=== PATIENT | female | born 1940 | race Hispanic/Latino ===

== ENCOUNTER → 2019-08-10 | Outpatient (CLI) | payer OTHER, MEDICARE | END | disposition home or self-care (01) | LOC: RAH 12:49 | PROVIDERS: ATTEND Family Medicine | DX: Z12.31 Encounter for screening mammogram for malignant neoplasm of breast (principal) | CPT/HCPCS: 77067 ==

== ENCOUNTER 2019-12-10 12:22 | Inpatient (IN) | payer OTHER, MEDICARE ==
[~2019-12-10] VITALS: Ht 157.5 cm; Wt 78.0 kg
[2019-12-10 13:37] LABS: BASOPHILS % (AUTO) 0.3 % (0.0-5.0); HEMATOCRIT 44.1 % (36-48); LYMPHOCYTES % (AUTO) 30.4 % (21.0-51.0); MEAN CORPUSCULAR HEMOGLOBIN 30.1 pg (27.0-33.0); MEAN CORPUSCULAR HGB CONC 33.6 g/dL (32.0-36.0); MEAN CORPUSCULAR VOLUME 89.8 fL (79-99); MONOCYTES % (AUTO) 11.2 % (3.0-13.0); NEUTROPHILS % (AUTO) 57.8 % (40.0-77.0); PLATELET COUNT (AUTO) 119 K/uL (130-400); RED BLOOD CELL COUNT(AUTO) 4.91 MIL/uL (4.00-5.50); RED CELL DISTRIBUTION WIDTH 12.6 % (11.0-15.5); WHITE BLOOD COUNT (AUTO) 3.3 K/uL (4.8-10.8)
[2019-12-10 13:53] LABS: CREATININE 0.8 mg/dL (0.5-1.5); POTASSIUM 3.9 mmol/L (3.5-5.1)
[2019-12-10 13:58] LABS: BILIRUBIN,TOTAL 0.6 mg/dL (0.2-1.0); TOTAL PROTEIN, SERUM 6.9 g/dL (6.0-8.3)
[2019-12-10 14:00] LABS: INR 0.95 (0.85-1.15); PROTHROMBIN TIME 10.3 SEC (9.6-11.6)
[2019-12-10] MEDS ORDERED: FUROSEMIDE 10 MG/ML 2ML VIAL ONE (16:09)
[2019-12-10] MEDS ORDERED: DEXAMETHASONE SOD PHOSPHATE 10MG/ML 1ML VIAL ONE (16:09)
[2019-12-10] MEDS ORDERED: ENOXAPARIN SODIUM 40 MG/0.4 ML SYRINGE SQ ONE (16:09)
[2019-12-10] MEDS ORDERED: ONDANSETRON HCL 4 MG/2 ML VIAL IVP PRN (19:00)
[2019-12-10] MEDS ORDERED: HYDRALAZINE HCL 20 MG/ML VIAL IV PRN (19:00)
[2019-12-10] MEDS ORDERED: DOCUSATE SODIUM 100 MG CAP PO PRN (19:00)
[2019-12-10] MEDS ORDERED: ACETAMINOPHEN 325 MG TAB PO PRN (19:00)
[2019-12-11] MEDS ORDERED: FUROSEMIDE 10 MG/ML 2ML VIAL IVP SCH (09:00)
[2019-12-11] MEDS: ENOXAPARIN SODIUM 40 MG/0.4 ML SYRINGE SQ SCH (09:00)
[2019-12-11] MEDS: DEXAMETHASONE SOD PHOSPHATE 10MG/ML 1ML VIAL IV SCH (09:00)
[2019-12-11] MEDS ORDERED: DEXAMETHASONE SOD PHOSPHATE 10MG/ML 1ML VIAL ONE (09:30)
[2019-12-11] MEDS ORDERED: FUROSEMIDE 10 MG/ML 2ML VIAL ONE (09:31)
[2019-12-11] MEDS ORDERED: ENOXAPARIN SODIUM 60 MG/0.6 ML SQ ONE (09:32)
[2019-12-11 09:53] LABS: CREATININE 0.7 mg/dL (0.5-1.5); POTASSIUM 4.1 mmol/L (3.5-5.1)
--- NOTE | 2019-12-11 14:42 | NUR ---
assume care of patient refer to er record for review of sx
--- NOTE | 2019-12-11 17:52 | NUR ---
INITIAL SW spoke to patient's daughter, Adry Jacob, [phone]. Another emergency contact is daughter, Lisa Horn, [phone]. Patient lives with daughter, Adry and grandson. No home health but does have PHC with [facility] X 17.75 hours a week. No DME. Patient was independent and drove up to two weeks ago as per daughter. PCP is Dr. Beth Santo. Pharmacy is [facility]. DCP is home. Addendum: 12/11/19 at 1755 by ADRY NOGUERA SS Amended: Links added.
[2019-12-12] MEDS: DEXAMETHASONE SOD PHOSPHATE 10MG/ML 1ML VIAL IV SCH (09:00)
[2019-12-12] MEDS: ENOXAPARIN SODIUM 40 MG/0.4 ML SYRINGE SQ SCH (09:00)
[2019-12-12] MEDS ORDERED: DEXAMETHASONE SOD PHOSPHATE 10MG/ML 1ML VIAL ONE (09:06)
[2019-12-12] MEDS ORDERED: FUROSEMIDE 10 MG/ML 2ML VIAL ONE (09:06)
[2019-12-12] MEDS ORDERED: ENOXAPARIN SODIUM 40 MG/0.4 ML SYRINGE SQ ONE (09:07)
[2019-12-12] MEDS ORDERED: GLUCAGON 1MG KIT 1 MG ML IM PRN (09:15)
[2019-12-12] MEDS ORDERED: DIPHENHYDRAMINE HCL 25 MG CAPSULE PO PRN (09:15)
[2019-12-12] MEDS ORDERED: ACETAMINOPHEN 325 MG TAB PO PRN ×2 (09:15)
[2019-12-12] MEDS ORDERED: DEXTROSE 50%-WATER 50 ML DISP.SYRIN IV PRN (09:15)
[2019-12-12] MEDS ORDERED: LACTULOSE 20 GM/30 ML UDCUP PO PRN (09:15)
[2019-12-12 09:21] LABS: CREATININE 0.8 mg/dL (0.5-1.5)
--- NOTE | 2019-12-12 10:26 | NUR ---
SPOKE TO JUAN BURT [facility] PLAN OF CARE- ADVISED HER THAT OBTAINING OXYGEN FOR HOME USE IS GOING TO BE VERY DIFFICULT AND WILL NOT BE TODAY SHORTAGES EXIST. IS POSSIBILITY OF WEANING O2? WILL FOLLOW UP Addendum: 12/12/19 at 1027 by PHOEBE MALIN RN CM Amended: Links added.
[2019-12-12] MEDS: INSULIN HUMULIN R 100 UNIT/ML 3ML SQ SCH ×3 (11:30→21:00)
[2019-12-12] MEDS: MULTIVITAMIN WITH MINERALS TABLET PO SCH (12:00)
[2019-12-12] MEDS: ASCORBIC ACID 500 MG TAB PO SCH (12:00)
[2019-12-12] MEDS ORDERED: MULTIVITAMIN WITH MINERALS TABLET PO SCH (14:30)
[2019-12-12] MEDS ORDERED: ASCORBIC ACID 500 MG TAB ONE (15:38)
[2019-12-12] MEDS: FAMOTIDINE 20MG TAB 20 MG TAB PO SCH (21:00)
[2019-12-12] MEDS ORDERED: FAMOTIDINE 20MG TAB 20 MG TAB ONE (21:01)
[2019-12-12 21:27] LABS: APPEARANCE,URINE Clear (CLEAR); BILIRUBIN,URINE Negative (NEGATIVE); COLOR,URINE Dark Yellow (YELLOW); GLUCOSE, URINE (UA) Negative (NEGATIVE); KETONES,URINE Negative (NEGATIVE); LEUKOCYTE ESTERASE ,URINE Negative (NEGATIVE); NITRATE,URINE Negative (NEGATIVE); OCCULT BLOOD,URINE Negative (NEGATIVE); PROTEIN,URINE Negative (NEGATIVE)
[2019-12-12] MEDS ORDERED: NOREPINEPHRINE 4MG/NS 250ML 250 ML IV SCH (22:00)
[2019-12-12] MEDS: AZITHROMYCIN 500MG+NS 250ML 250 ML IV SCH (22:00)
[2019-12-12 22:30] VITALS: BP 131/61
[2019-12-13 03:21] VITALS: BP 120/72
[2019-12-13 05:13] LABS: BASOPHILS % (AUTO) 0.1 % (0.0-5.0); HEMATOCRIT 42.6 % (36-48); LYMPHOCYTES % (AUTO) 6.2 % (21.0-51.0); MEAN CORPUSCULAR HEMOGLOBIN 29.7 pg (27.0-33.0); MEAN CORPUSCULAR HGB CONC 33.3 g/dL (32.0-36.0); MEAN CORPUSCULAR VOLUME 89.1 fL (79-99); MONOCYTES % (AUTO) 6.6 % (3.0-13.0); NEUTROPHILS % (AUTO) 86.7 % (40.0-77.0); PLATELET COUNT (AUTO) 154 K/uL (130-400); RED BLOOD CELL COUNT(AUTO) 4.78 MIL/uL (4.00-5.50); RED CELL DISTRIBUTION WIDTH 12.8 % (11.0-15.5); WHITE BLOOD COUNT (AUTO) 10.3 K/uL (4.8-10.8)
[2019-12-13 05:25] LABS: CREATININE 0.7 mg/dL (0.5-1.5); POTASSIUM 3.7 mmol/L (3.5-5.1)
[2019-12-13] MEDS: INSULIN HUMULIN R 100 UNIT/ML 3ML SQ SCH ×4 (06:41→21:00)
[2019-12-13 07:10] LABS: ABG BASE EXCESS 2.9 mmol/L (-2.0-3.0); ABG HCO3 26.5 mmol/L (21.0-28.0); ABG OXYGEN SATURATION 84.9 % (95.0-99.0); ABG PCO2 37 mmHg (32-45)
[2019-12-13 07:30] VITALS: BP 113/67
--- NOTE | 2019-12-13 08:00 | NUR ---
NOTE AAOX3. DNEIES PAIN OR DISCOMFORT. SOB WITH EXERTION AND SHE GETS TIRED QUICKLY. SHE IS HERE WITH SOB SUSPECTED COVID PNA. BBS CLEAR TO UPPER AND COARSE, SLIGHT CRACKLES TO LOWER. SHE HAD ABG'S DRAWN THIS AM AND WITH LOW PO2 LEVEL, LOWER THAN HAD BEEN AND SHE WAS INCREASED TO 3LNC. SHE IS PENDING CT CHEST WITHOUT CONTRAST ORDERED LAST NIGHT AND 2D ECHO. REMAINS ON ENHAMCED PRECAUTIONS FOR SUSPECTED COVID, POSSIBLE RESULTS TODAY.
[2019-12-13] MEDS ORDERED: DEXAMETHASONE SOD PHOSPHATE 4 MG/ML 1ML VIAL ONE (08:53)
[2019-12-13] MEDS: ENOXAPARIN SODIUM 40 MG/0.4 ML SYRINGE SQ SCH ×2 (09:00→09:36)
[2019-12-13] MEDS ORDERED: FUROSEMIDE 40 MG TABLET PO SCH (09:00)
[2019-12-13] MEDS: DEXAMETHASONE SOD PHOSPHATE 10MG/ML 1ML VIAL IV SCH (09:00)
[2019-12-13] MEDS: FAMOTIDINE 20MG TAB 20 MG TAB PO SCH ×2 (09:35→22:26)
[2019-12-13] MEDS: MULTIVITAMIN WITH MINERALS TABLET PO SCH (09:35)
[2019-12-13] MEDS: ASCORBIC ACID 500 MG TAB PO SCH (09:35)
[2019-12-13 11:00] VITALS: BP 115/75
--- NOTE | 2019-12-13 12:45 | NUR ---
NOTE SHE WENT AND CAME BACK FROM CT CHEST WITHOUT CONTRAST. ALSO HAD 2D ECHO DONE EARLIER THIS AM WELL.
[2019-12-13 16:00] VITALS: BP 141/66
--- NOTE | 2019-12-13 16:10 | NUR ---
note WAS REPORTED FROM TELEMETRY THAT PATIENT CONVERTED TO A-FIB IN THE 80'S EARLIER BUT HEART RATE HAS BEEN CREEPING UP TO 120'S. SHE DENIES ANY INCREASE IN SOB BUT O2 SATURATION HAS DROPPED TO 87% ON 3LNC, SAME AMOUNT O2 THAT HAD HER SATS 96%. INFORMED CHARGE NURSE STANFORD AND WILL GET AMIODARONE DRIP STARTED ONCE AVAILABLE.
[2019-12-13] MEDS ORDERED: AMIODARONE HCL 150 MG in DEXTROSE 5%-WATER 100 ML IV SCH (16:30)
[2019-12-13] MEDS ORDERED: AMIODARONE HCL 900 MG in DEXTROSE 5%-WATER 500 ML IV SCH (17:00)
--- NOTE | 2019-12-13 18:31 | NUR ---
NOTE PATIENT RECEIVED LOADING DOSE OF AMIODARONE IV AND STARTED DRIP AT 33ML/HR INDICATED FROM PHARMACY TO COMPLETE A DOSE OF 360 MG OVER 6 HR PERIOD. DRUG CONCENTRATION 900MG/500ML. NOTIFIED IDA AVALOS ARTS AND HUMANITIES COUNCIL DIRECTOR ABOUT IT AND SHE ALSO GAVE AN ORDER FOR CT CHEST WITH P.E. PROTOCOL. AFTER BOLUS HEART RATE DROPPED TO 100 BUT REMAINED ON A-FIB. AT THIS TIME HER HEART RATE IS 120 AND HER O2 SATURATION FLUCTUATES FROM 88%-92%. WILL ASK R.T. TO HELP TITRATE O2. PATIENT DOES NOT SEEM TO BE IN MUCH INCREASED DISTRESS. SHE WALKED TO BATHROOM EARLIER.
[2019-12-13] MEDS ORDERED: IOHEXOL-350 75 ML VIAL IV ONE (18:47)
[2019-12-13] MEDS ORDERED: DILTIAZEM HCL 125 MG/25 ML 125 MG in SODIUM CHLORIDE 0.9% 100 ML IV PRN (19:15)
[2019-12-13] MEDS ORDERED: DILTIAZEM HCL 5 MG/ML 5 ML VIAL IVP PRN (19:15)
--- NOTE | 2019-12-13 20:00 | NUR ---
1999.....pt received Amiodaron during day shift and converted from Afib to sinus rhythm with HR = 68 and BP = 136/86; Cardizem bolus and drip currently ordered on pt; will contact medical team for further guidance on administration; Dr. Ramos paged @[phone] and 2024; Dr Frye paged @[phone] and [phone]; answering service contacted @2051; Dr Frye returned page @[phone] and stated to discontinue/cancel current Cardizem order and prescribed Cardizem 30mg PO BID; order read back and verified. JULIO CESAR Fowler 2129.....Pt presented A&Ox4 and is cooperative; pts mood is appropriate; pt administered medications, no PRNs were requested and/or administered; pt educated on benefits, risk and side effects of meds and encouraged to utilize PRNs to relieve symptoms of disease process as well as use of medical equipment; pt verbalized understanding; pt denies any requests and/or complaints at this time; pts respirations are even and unlabored and she denies SOB however was observed to experience SOB with exertion; (pt on nasal canula at 4L which was increased to 5L O2 after ambulating from bathroom back to bed); no distress noted; will continue to monitor throughout remainder of shift. Korin Lance RN Addendum: 12/14/19 at 0308 by Connor Lance RN RN Amended: Links added.
[2019-12-13 20:11] VITALS: BP 136/86
[2019-12-13] MEDS: DILTIAZEM HCL 60 MG TABLET PO SCH (22:27)
[2019-12-13] MEDS: AZITHROMYCIN 500MG+NS 250ML 250 ML IV SCH (22:28)
[2019-12-13 23:32] VITALS: BP 123/54
[2019-12-14 03:35] VITALS: BP 120/71
[2019-12-14 04:28] LABS: ABG BASE EXCESS 0.3 mmol/L (-2.0-3.0); ABG HCO3 23.8 mmol/L (21.0-28.0); ABG OXYGEN SATURATION 91.6 % (95.0-99.0); ABG PCO2 35 mmHg (32-45)
[2019-12-14] MEDS: INSULIN HUMULIN R 100 UNIT/ML 3ML SQ SCH ×4 (06:59→21:00)
[2019-12-14 07:17] LABS: ALANINE AMINOTRANSFERASE 25 U/L (12-78); ALBUMIN 2.5 g/dL (3.5-5.0); ASPARTATE AMINOTRANSFERASE 33 U/L (10-37); BILIRUBIN,TOTAL 0.6 mg/dL (0.2-1.0); CARBON DIOXIDE 28 mmol/L (21-32); CHLORIDE 108 mmol/L (101-111); CREATININE 0.8 mg/dL (0.5-1.5); GLOMERULAR FILTR. RATE CALC 73 mL/min (>60); GLUCOSE,RANDOM 113 mg/dL (70-105); POTASSIUM 3.8 mmol/L (3.5-5.1); SODIUM SERUM 142 mmol/L (136-145); TOTAL PROTEIN, SERUM 6.2 g/dL (6.0-8.3); UREA NITROGEN, BLOOD 25 mg/dL (7-18)
[2019-12-14] MEDS: ENOXAPARIN SODIUM 40 MG/0.4 ML SYRINGE SQ SCH ×2 (07:40→08:31)
[2019-12-14 08:00] VITALS: BP 103/69
[2019-12-14] MEDS ORDERED: DEXAMETHASONE SOD PHOSPHATE 4 MG/ML 1ML VIAL ONE (08:26)
[2019-12-14] MEDS: ASCORBIC ACID 500 MG TAB PO SCH (08:29)
[2019-12-14] MEDS: MULTIVITAMIN WITH MINERALS TABLET PO SCH (08:29)
[2019-12-14] MEDS: FAMOTIDINE 20MG TAB 20 MG TAB PO SCH ×2 (08:30→22:04)
[2019-12-14] MEDS: DILTIAZEM HCL 60 MG TABLET PO SCH ×2 (08:30→22:06)
[2019-12-14] MEDS: DEXAMETHASONE SOD PHOSPHATE 10MG/ML 1ML VIAL IV SCH (08:32)
--- NOTE | 2019-12-14 08:45 | NUR ---
AM ASSESSMENT PT AWAKE, ALERT, AND ORIENTED. DENIES CHEST PAIN, DENIES SOB OR LABORED RESPIRATIONS AT THIS TIME. PT O2 SAT ON 6L PER NC 89-90%, PT ENCOURAGED TO PRONE POSITION AT THIS TIME. CALL PLACED TO RT TO MAKE AWARE OF O2 SAT FOR FURTHER RECOMMENDATIONS. PT IN NO DISTRESS AT THIS TIME, TELEMETRY MONITORING, CALL LIGHT WITHIN REACH. WILL CONTINUE TO MONITOR PT.
--- NOTE | 2019-12-14 10:45 | NUR ---
O2 SAT PT AWAKE AND ALERT, CONTINUES IN PRONE POSITION, DENIES SOB OR LABORED RESPIRATIONS. O2 SAT 89%-94%. CALL LIGHT WITHIN REACH, TELEMETRY MONITORING.
[2019-12-14 12:00] VITALS: BP 110/54
--- NOTE | 2019-12-14 14:00 | NUR ---
PM ASSESSMENT PT IN BED IN PRONE POSITION, DENIES SOB OR LABORED RESPIRATIONS. O2 PER NC, CALL LIGHT WITHIN REACH.
[2019-12-14 16:00] VITALS: BP 128/66
--- NOTE | 2019-12-14 16:10 | NUR ---
CARDIOLOGY CONSULT CONSULT CALLED IN TO [facility] FOR DIAGNOSIS OF NEW ONSET AFIB ; SPOKE TO BREANNE, INFORMATION GIVEN, DR KOCH INTERIOR DESIGN PRINCIPAL.
--- NOTE | 2019-12-14 18:00 | NUR ---
PRONE PATIENT AWAKE, ALERT, AND ORIENTED, DENIES SOB OR DISCOMFORT, NO CHEST PAIN. PT CONTINUES IN PRONE POSITION, O2 PER NC. TELEMETRY MONITORING, CALL LIGHT WITHIN REACH.
[2019-12-14 20:40] VITALS: BP 136/75
[2019-12-14] MEDS: AZITHROMYCIN 500MG+NS 250ML 250 ML IV SCH (22:13)
[2019-12-15] VITALS (7 sets, daily range): BP systolic 100–163; BP diastolic 60–87
--- NOTE | 2019-12-15 00:05 | NUR ---
PIV found infiltrated; IV abx stopped, PIV removed, ice packs applied and extremity elevated and pt received Tylenol for pain. Korin Lance RN Addendum: 12/15/19 at 0447 by Connor Lance RN RN Amended: Links added.
[2019-12-15 04:06] LABS: ABG BASE EXCESS -0.7 mmol/L (-2.0-3.0); ABG HCO3 22.1 mmol/L (21.0-28.0); ABG OXYGEN SATURATION 96.5 % (95.0-99.0); ABG PCO2 32 mmHg (32-45)
[2019-12-15 05:55] LABS: BASOPHILS % (AUTO) 0.1 % (0.0-5.0); HEMATOCRIT 45.2 % (36-48); LYMPHOCYTES % (AUTO) 8.1 % (21.0-51.0); MEAN CORPUSCULAR HEMOGLOBIN 28.9 pg (27.0-33.0); MEAN CORPUSCULAR HGB CONC 32.5 g/dL (32.0-36.0); MEAN CORPUSCULAR VOLUME 88.8 fL (79-99); MONOCYTES % (AUTO) 6.6 % (3.0-13.0); NEUTROPHILS % (AUTO) 84.3 % (40.0-77.0); PLATELET COUNT (AUTO) 180 K/uL (130-400); RED BLOOD CELL COUNT(AUTO) 5.09 MIL/uL (4.00-5.50); RED CELL DISTRIBUTION WIDTH 12.8 % (11.0-15.5)
[2019-12-15] MEDS: INSULIN HUMULIN R 100 UNIT/ML 3ML SQ SCH ×4 (06:23→20:01)
[2019-12-15 06:56] LABS: ALBUMIN 2.6 g/dL (3.5-5.0); BILIRUBIN,TOTAL 0.6 mg/dL (0.2-1.0); CREATININE 0.8 mg/dL (0.5-1.5); POTASSIUM 3.8 mmol/L (3.5-5.1); THYROID STIMULATING HORMONE 0.19 uIU/mL (0.36-3.74); TOTAL PROTEIN, SERUM 6.6 g/dL (6.0-8.3)
[2019-12-15] MEDS: ENOXAPARIN SODIUM 40 MG/0.4 ML SYRINGE SQ SCH ×2 (08:04→09:03)
--- NOTE | 2019-12-15 08:30 | NUR ---
AM ASSESSMENT PT AWAKE AND ALERT, DENIES SOB OR LABORED RESPIRATIONS, O2 PER NC. PT ENCOURAGED TO PRONE POSITION. O2 SAT 93-94%
[2019-12-15] MEDS ORDERED: DEXAMETHASONE SOD PHOSPHATE 4 MG/ML 1ML VIAL ONE (08:52)
[2019-12-15] MEDS: DEXAMETHASONE SOD PHOSPHATE 10MG/ML 1ML VIAL IV SCH (09:01)
[2019-12-15] MEDS: DILTIAZEM HCL 60 MG TABLET PO SCH ×2 (09:02→21:02)
[2019-12-15] MEDS: FAMOTIDINE 20MG TAB 20 MG TAB PO SCH ×2 (09:02→20:28)
[2019-12-15] MEDS: ASCORBIC ACID 500 MG TAB PO SCH (09:02)
[2019-12-15] MEDS: MULTIVITAMIN WITH MINERALS TABLET PO SCH (09:02)
--- NOTE | 2019-12-15 15:45 | NUR ---
O2 SAT PT UP TO BATHROOM PER SELF, REMINDED PT TO CALL FOR HELP BY USING CALL LIGHT. O2 SAT DROPPED TO 75% ON ROOM , O2 PER NC RE-APPLIED, O2 SAT UP TO 88%. PT DENIES SOB AT REST, O2 PER NON-REBREATHER APPLIED, O2 SAT 93%. PT REMINDED NOT TO REMOVE O2. IDA CONCRETE PLACEMENT EQUIPMENT OPERATOR FOR [employer] MADE AWARE; STATES TO ENCOURAGE PT TO USE BEDPAN OR BEDSIDE COMMODE AND CONTINUE TO MONITOR O2 SAT.
[2019-12-15] MEDS ORDERED: FAMOTIDINE/PF 20 MG/2 ML VIAL IV ONE (20:14)
[2019-12-15] MEDS: AZITHROMYCIN 500MG+NS 250ML 250 ML IV SCH (23:40)
[2019-12-16] VITALS: BP 128/72
[2019-12-16 04:00] VITALS: BP_SYST 135; BP_SYST 144; BP_DIAS 62; BP_DIAS 90
[2019-12-16] MEDS: INSULIN HUMULIN R 100 UNIT/ML 3ML SQ SCH ×4 (06:18→21:00)
[2019-12-16 08:53] VITALS: BP 145/75
[2019-12-16] MEDS: ENOXAPARIN SODIUM 40 MG/0.4 ML SYRINGE SQ SCH ×2 (09:00→09:33)
[2019-12-16] MEDS: FAMOTIDINE 20MG TAB 20 MG TAB PO SCH (09:00)
[2019-12-16] MEDS: DEXAMETHASONE SOD PHOSPHATE 10MG/ML 1ML VIAL IV SCH (09:30)
[2019-12-16] MEDS: ASCORBIC ACID 500 MG TAB PO SCH (09:32)
[2019-12-16] MEDS: DILTIAZEM HCL 60 MG TABLET PO SCH ×2 (09:32→22:50)
[2019-12-16] MEDS: MULTIVITAMIN WITH MINERALS TABLET PO SCH (09:32)
--- NOTE | 2019-12-16 10:00 | NUR ---
REOS ALVAREZ [facility] [place] ROUNDED ON PATIENT PATIENT SB 55 AND PER DARCIE SERVICE WILL SIGN OFF CASE FOR NOW. IF CONVERTS BACK A AFIB RECONSULT CARDIOLOGY
[2019-12-16 11:08] VITALS: BP 144/71
[2019-12-16 16:38] VITALS: BP 129/56
[2019-12-16 19:30] VITALS: BP 151/77
[2019-12-16] MEDS: AZITHROMYCIN 500MG+NS 250ML 250 ML IV SCH (22:50)
[2019-12-16] MEDS: FAMOTIDINE/PF 20 MG/2 ML VIAL IV SCH (22:50)
[2019-12-17 00:20] VITALS: BP 152/73
[2019-12-17 03:25] VITALS: BP 155/73
[2019-12-17] MEDS: INSULIN HUMULIN R 100 UNIT/ML 3ML SQ SCH ×4 (05:49→21:00)
[2019-12-17] MEDS: ENOXAPARIN SODIUM 40 MG/0.4 ML SYRINGE SQ SCH ×2 (07:32→08:37)
[2019-12-17] MEDS: MULTIVITAMIN WITH MINERALS TABLET PO SCH (08:37)
[2019-12-17] MEDS: FAMOTIDINE/PF 20 MG/2 ML VIAL IV SCH ×2 (08:37→22:51)
[2019-12-17] MEDS: DILTIAZEM HCL 60 MG TABLET PO SCH ×2 (08:38→22:51)
[2019-12-17] MEDS: ASCORBIC ACID 500 MG TAB PO SCH (08:38)
[2019-12-17 08:42] VITALS: BP 138/69
[2019-12-17] MEDS: DEXAMETHASONE SOD PHOSPHATE 10MG/ML 1ML VIAL IV SCH (08:44)
[2019-12-17 11:11] VITALS: BP 145/69
[2019-12-17 16:56] VITALS: BP 141/65
[2019-12-17 19:30] VITALS: BP 132/77
[2019-12-17] MEDS: AZITHROMYCIN 500MG+NS 250ML 250 ML IV SCH (22:51)
[2019-12-18] VITALS: BP 128/74
[2019-12-18 04:00] VITALS: BP 143/64
[2019-12-18] MEDS: INSULIN HUMULIN R 100 UNIT/ML 3ML SQ SCH ×4 (05:55→21:00)
[2019-12-18 08:00] VITALS: BP 130/78
[2019-12-18] MEDS: ASCORBIC ACID 500 MG TAB PO SCH (08:24)
[2019-12-18] MEDS: MULTIVITAMIN WITH MINERALS TABLET PO SCH (08:24)
[2019-12-18] MEDS: DILTIAZEM HCL 60 MG TABLET PO SCH ×2 (08:24→21:47)
[2019-12-18] MEDS: ENOXAPARIN SODIUM 40 MG/0.4 ML SYRINGE SQ SCH ×2 (08:25→12:06)
[2019-12-18] MEDS: FAMOTIDINE/PF 20 MG/2 ML VIAL IV SCH ×2 (08:26→21:47)
[2019-12-18] MEDS: DEXAMETHASONE SOD PHOSPHATE 10MG/ML 1ML VIAL IV SCH (08:30)
[2019-12-18 11:00] VITALS: BP 114/55
[2019-12-18 16:00] VITALS: BP 124/58
[2019-12-18] MEDS: AZITHROMYCIN 500MG+NS 250ML 250 ML IV SCH (21:47)
[2019-12-18 22:20] VITALS: BP 134/67
[2019-12-19 00:03] VITALS: BP 141/63
[2019-12-19] MEDS: INSULIN HUMULIN R 100 UNIT/ML 3ML SQ SCH ×4 (05:40→21:00)
[2019-12-19 05:47] VITALS: BP 139/71
[2019-12-19 08:00] VITALS: BP 98/58
[2019-12-19] MEDS: ENOXAPARIN SODIUM 40 MG/0.4 ML SYRINGE SQ SCH ×2 (09:00→09:24)
[2019-12-19] MEDS: DEXAMETHASONE SOD PHOSPHATE 10MG/ML 1ML VIAL IV SCH (09:22)
[2019-12-19] MEDS: ASCORBIC ACID 500 MG TAB PO SCH (09:23)
[2019-12-19] MEDS: MULTIVITAMIN WITH MINERALS TABLET PO SCH (09:23)
[2019-12-19] MEDS: FAMOTIDINE/PF 20 MG/2 ML VIAL IV SCH ×2 (09:23→21:00)
[2019-12-19] MEDS: DILTIAZEM HCL 60 MG TABLET PO SCH ×2 (09:23→21:00)
--- NOTE | 2019-12-19 11:48 | NUR ---
RDSCREEN - LOS X 9 Pt positive for COVID infection. Pt is tolerating 75gm CCD with no report of GI distress. PO intake at 75%. Vitamin C, MVI in place. S/p Plasma Tx. New onset AFib as per EMR. Dyspnea. Recommend continue 75gm CCD Recommend 60mL ProMod BID RD to continue to monitor. Please notify RD as additional nutrition concerns arise. Thank you.
[2019-12-19 12:00] VITALS: BP 133/67
[2019-12-19 17:16] VITALS: BP 128/72
[2019-12-19 20:36] VITALS: BP 144/72
[2019-12-19] MEDS: AZITHROMYCIN 500MG+NS 250ML 250 ML IV SCH (21:10)
[2019-12-20 00:36] VITALS: BP 127/65
[2019-12-20 04:36] VITALS: BP 131/67
[2019-12-20] MEDS: INSULIN HUMULIN R 100 UNIT/ML 3ML SQ SCH ×4 (05:51→21:00)
--- NOTE | 2019-12-20 08:00 | NUR ---
PT AAO X 3 REVIEW PLAN OF CARE. PT POSITION HERSELF ON PRONE POSITIONS FOR RESP CARE. STATES THAT SHE TRY VERY HARD TO GET DOWN ON HER OXGEN VIA 100 % NRB. REVIEW FALL RISK ANDCALL LIGHT IN REACH.
[2019-12-20] MEDS: ENOXAPARIN SODIUM 40 MG/0.4 ML SYRINGE SQ SCH ×3 (09:00→21:00)
[2019-12-20] MEDS: DILTIAZEM HCL 60 MG TABLET PO SCH (09:00)
[2019-12-20] MEDS: MULTIVITAMIN WITH MINERALS TABLET PO SCH (09:09)
[2019-12-20] MEDS: ASCORBIC ACID 500 MG TAB PO SCH (09:09)
[2019-12-20] MEDS: FAMOTIDINE/PF 20 MG/2 ML VIAL IV SCH ×2 (09:10→21:00)
[2019-12-20] MEDS: DEXAMETHASONE SOD PHOSPHATE 10MG/ML 1ML VIAL IV SCH (09:10)
[2019-12-20 09:39] VITALS: BP 114/63
[2019-12-20 12:21] VITALS: BP 160/73
--- NOTE | 2019-12-20 14:58 | NUR ---
Family notification Spoke to Lisa Jacob and gave her an update regarding pt's condition. All questions were answered and concerns addressed. Mrs. Jacob was very appreciative of call.
--- NOTE | 2019-12-20 16:11 | NUR ---
Family notification Addendum for 12/19/2019; Spoke to Lisa Jacob and gave her an update regarding pt's condition. All questions were answered and concerns addressed. Mrs. Jacob was very appreciative of call.
[2019-12-20 17:37] VITALS: BP 134/74
[2019-12-20 22:59] VITALS: BP 146/85
[2019-12-20] MEDS: AZITHROMYCIN 500MG+NS 250ML 250 ML IV SCH (23:39)
[2019-12-21 01:02] VITALS: BP 126/69
[2019-12-21] MEDS: INSULIN HUMULIN R 100 UNIT/ML 3ML SQ SCH ×4 (05:06→21:00)
[2019-12-21 05:48] VITALS: BP 132/74
[2019-12-21 07:18] LABS: BASOPHILS % (AUTO) 0.1 % (0.0-5.0); HEMATOCRIT 42.9 % (36-48); LYMPHOCYTES % (AUTO) 1.8 % (21.0-51.0); MEAN CORPUSCULAR HEMOGLOBIN 30.1 pg (27.0-33.0); MEAN CORPUSCULAR HGB CONC 33.8 g/dL (32.0-36.0); MONOCYTES % (AUTO) 1.9 % (3.0-13.0); NEUTROPHILS % (AUTO) 95.4 % (40.0-77.0); PLATELET COUNT (AUTO) 200 K/uL (130-400); RED BLOOD CELL COUNT(AUTO) 4.82 MIL/uL (4.00-5.50); RED CELL DISTRIBUTION WIDTH 13.1 % (11.0-15.5); WHITE BLOOD COUNT (AUTO) 18.2 K/uL (4.8-10.8)
[2019-12-21 07:56] LABS: CARBON DIOXIDE 29 mmol/L (21-32); CHLORIDE 105 mmol/L (101-111); CREATININE 0.8 mg/dL (0.5-1.5); GLOMERULAR FILTR. RATE CALC 73 mL/min (>60); GLUCOSE,RANDOM 89 mg/dL (70-105); POTASSIUM 4.3 mmol/L (3.5-5.1); SODIUM SERUM 141 mmol/L (136-145); UREA NITROGEN, BLOOD 25 mg/dL (7-18)
[2019-12-21 08:00] VITALS: BP 116/48
[2019-12-21 08:12] LABS: ABG BASE EXCESS 0.9 mmol/L (-2.0-3.0); ABG HCO3 23.3 mmol/L (21.0-28.0); ABG OXYGEN SATURATION 93.7 % (95.0-99.0); ABG PCO2 31 mmHg (32-45)
[2019-12-21] MEDS: MULTIVITAMIN WITH MINERALS TABLET PO SCH (09:00)
[2019-12-21] MEDS: ASCORBIC ACID 500 MG TAB PO SCH (09:00)
[2019-12-21] MEDS: DEXAMETHASONE SOD PHOSPHATE 10MG/ML 1ML VIAL IV SCH (09:00)
[2019-12-21] MEDS: ENOXAPARIN SODIUM 40 MG/0.4 ML SYRINGE SQ SCH (09:00)
[2019-12-21] MEDS: FAMOTIDINE/PF 20 MG/2 ML VIAL IV SCH ×2 (09:00→21:45)
[2019-12-21 12:00] VITALS: BP 130/75
[2019-12-21 16:00] VITALS: BP 122/65
[2019-12-21] MEDS: FUROSEMIDE 10 MG/ML 2ML VIAL IV SCH (18:20)
[2019-12-21] MEDS ORDERED: ENOXAPARIN SODIUM 80 MG/0.8 ML SQ SCH (21:00)
[2019-12-21] MEDS: AZITHROMYCIN 500MG+NS 250ML 250 ML IV SCH (21:45)
[2019-12-21 21:52] VITALS: BP 114/70
--- NOTE | 2019-12-22 | NUR ---
pts PIV infiltrated and IV antibiotics stopped; ice pack applied at site to RFA; pt refuses to have another PIV placed at this time but states she will allow a new IV to be placed in the morning; refusal for treatment formed signed and on-call physician paged through answering service; pending response; no new orders at this time. JULIO CESAR Fowler
[2019-12-22 01:59] VITALS: BP 151/60
[2019-12-22 04:39] LABS: BASOPHILS % (AUTO) 0.1 % (0.0-5.0); HEMATOCRIT 45.7 % (36-48); MEAN CORPUSCULAR HEMOGLOBIN 29.9 pg (27.0-33.0); MEAN CORPUSCULAR HGB CONC 33.5 g/dL (32.0-36.0); MEAN CORPUSCULAR VOLUME 89.4 fL (79-99); MONOCYTES % (AUTO) 1.6 % (3.0-13.0); NEUTROPHILS % (AUTO) 95.7 % (40.0-77.0); PLATELET COUNT (AUTO) 202 K/uL (130-400); RED BLOOD CELL COUNT(AUTO) 5.11 MIL/uL (4.00-5.50); WHITE BLOOD COUNT (AUTO) 17.6 K/uL (4.8-10.8)
[2019-12-22 05:09] LABS: CREATININE 0.9 mg/dL (0.5-1.5); MAGNESIUM 2.3 mg/dL (1.80-2.40); POTASSIUM 4.4 mmol/L (3.5-5.1)
[2019-12-22] MEDS: INSULIN HUMULIN R 100 UNIT/ML 3ML SQ SCH ×4 (06:10→21:00)
[2019-12-22 06:30] VITALS: BP 118/50
[2019-12-22] MEDS: FUROSEMIDE 10 MG/ML 2ML VIAL IV SCH ×2 (06:40→16:04)
[2019-12-22] MEDS: FAMOTIDINE/PF 20 MG/2 ML VIAL IV SCH ×2 (08:14→21:29)
[2019-12-22] MEDS: ASCORBIC ACID 500 MG TAB PO SCH (08:14)
[2019-12-22] MEDS: MULTIVITAMIN WITH MINERALS TABLET PO SCH (08:15)
[2019-12-22] MEDS: APIXABAN 5 MG TABLET PO SCH ×2 (08:15→21:29)
[2019-12-22 08:30] VITALS: BP 119/68
[2019-12-22 11:00] VITALS: BP 113/77
[2019-12-22 15:30] VITALS: BP 96/50
[2019-12-22 21:13] VITALS: BP 106/65
[2019-12-23] VITALS (16 sets, daily range): BP systolic 60–128; BP diastolic 20–89
[2019-12-23] MEDS: FUROSEMIDE 10 MG/ML 2ML VIAL IV SCH ×2 (05:42→17:00)
[2019-12-23] MEDS: INSULIN HUMULIN R 100 UNIT/ML 3ML SQ SCH ×4 (05:43→21:00)
--- NOTE | 2019-12-23 08:00 | NUR ---
AM SHIFT ASSESSMENT.
[2019-12-23] MEDS: MULTIVITAMIN WITH MINERALS TABLET PO SCH (09:15)
[2019-12-23] MEDS: ASCORBIC ACID 500 MG TAB PO SCH (09:15)
[2019-12-23] MEDS: APIXABAN 5 MG TABLET PO SCH ×2 (09:15→21:00)
[2019-12-23] MEDS: FAMOTIDINE/PF 20 MG/2 ML VIAL IV SCH ×2 (09:15→21:00)
--- NOTE | 2019-12-23 16:00 | NUR ---
BREATHING VERY SHALLOW, SATS UP AND DOWN, GOES DOWN TO 70S AND RESP IN THE 40S, LABORED. CHARGE NURSE AWARE.
[2019-12-23 17:03] LABS: ABG BASE EXCESS 3.8 mmol/L (-2.0-3.0); ABG HCO3 27.3 mmol/L (21.0-28.0); ABG PCO2 38 mmHg (32-45)
--- NOTE | 2019-12-23 17:46 | NUR ---
PAGED FAISAL AVALOS OUTDOOR RECREATION SPECIALIST WITH BENCHMARK RE PT. COND. LEFT VOICE MAIL THERE WAS NO ANSWER. 02 SATS AT 90%ON BI-PAP BUT BREATHING IS VERY SHALLOW, HAND ARE BLUISH AND COLD AND RESP. DISCUSSED WITH CHARGE AND OUTDOOR RECREATION SPECIALIST CALLED BACK AND ASKED THAT W E TALK TO FAMILY RE:CODE STATUS. TALKED TO DAUGHTER BRITTANY AND SHE WILL TALK TO OTHER FAMILY MEMBERS AND WILL CALL BACK
--- NOTE | 2019-12-23 18:00 | NUR ---
PLACED ON PRONE POSITION, SATS DROPPED INTO 70S, RETURNED TO SUPINE POSITION. RESPIRATORY THERAPY WORKING WITH SETTINGS ON CPAP. .
--- NOTE | 2019-12-23 18:16 | NUR ---
DAUGHTER CALLED BACK AND WANTS EVERY THING WE CAN DO TO KEEP HER ALIVE , WANT INTUBATION AND ASKING IF SHE WOULD STAY ON THIS FLOOR.
[2019-12-23 19:15] LABS: ABG BASE EXCESS 2.7 mmol/L (-2.0-3.0); ABG HCO3 27.2 mmol/L (21.0-28.0); ABG OXYGEN SATURATION 82.8 % (95.0-99.0); ABG PCO2 41 mmHg (32-45)
--- NOTE | 2019-12-23 21:00 | NUR ---
BEDSIDE REPORT BEDSIDE REPORT RECEIVED FROM JOLIE HARRELL. ABG'S REVIEWED AND PENDING INTUBATION BY MESERET PATEL. ASSESSMENT COMPLETED AND IV'S STARTED, SEE ASSESSMENT.
[2019-12-23] MEDS ORDERED: FENTANYL CITRATE PF 0.05 MG/ML 1,000 MCG in SODIUM CHLORIDE 0.9% 100 ML IVPB SCH (21:15)
[2019-12-23] MEDS ORDERED: FENTANYL 2500MCG+NS 250ML 250 ML IV ONE (21:17)
[2019-12-23] MEDS ORDERED: PROPOFOL 1000 MG/100 ML 100 ML IV ONE (21:17)
[2019-12-23] MEDS ORDERED: SODIUM CHLORIDE 0.9% 1000ML 1,000 ML IV ONE (21:19)
--- NOTE | 2019-12-23 21:21 | NUR ---
Upon receiving report at the start of shiftman, this nurse was informed that pts condition had deteriorated and pt was now on BIPAP (16 over 6 settings, FIO2 at 100%, pt satting 85-89% with agonal breathing); pt continued to be monitored with vitals RR=38, PY=302/76, HR = 71 and temp 97.7; pt is lying supine in bed; pt transferred to 2nd floor ICU at 2100; pt was transferred on BIPAP with primary nurse, RT and 4th floor CN; report given to ICU nurse and pts daughter notified of pts transfer and provided with phone number to contact pts nurse for updates; Janeth RN
--- NOTE | 2019-12-23 21:35 | NUR ---
PT INTUBATED PT INTUBATED, PCXR PENDING YO VERIFY PLACEMENT.
[2019-12-23] MEDS: NOREPINEPHRINE 4MG/NS 250ML 250 ML IV SCH (21:56)
--- NOTE | 2019-12-23 22:00 | NUR ---
ETT placement is 23 at the lip and placement verified by Joaquín Vasquez.
[2019-12-23 22:16] LABS: ABG BASE EXCESS 2.1 mmol/L (-2.0-3.0); ABG HCO3 26.4 mmol/L (21.0-28.0); ABG OXYGEN SATURATION 91.1 % (95.0-99.0); ABG PCO2 40 mmHg (32-45)
--- NOTE | 2019-12-23 22:25 | NUR ---
JUAN MARTINEZ NP MADE AWARE OF ABG'S, CURRENT VITAL SIGNS, MEDS, ABD LABS, SEE ORDERS
[2019-12-23] MEDS ORDERED: DOXYCYCLINE 100MG+NS 250ML 250 ML IV SCH (22:30)
[2019-12-23] MEDS ORDERED: MIDAZOLAM 50MG-0.9% NS 50ML 50 ML BAG IV SCH (22:30)
--- NOTE | 2019-12-23 22:40 | NUR ---
JUAN LOUISE OFFICE SUPPORT CLERK ORDERS RECEIVED FOR ZOSYN, SEE PT ALLERGIES, ABX CHANGED TO DOXYCYCLINE
[2019-12-23] MEDS ORDERED: METHYLPREDNISOLONE SOD SUCC 40MG/ML 1ML ONE (22:43)
[2019-12-23] MEDS: METHYLPREDNISOLONE SOD SUCC 40MG/ML 1ML IVP SCH (23:00)
[2019-12-24] VITALS (25 sets, daily range): BP systolic 91–143; BP diastolic 50–87
[2019-12-24] MEDS ORDERED: SUCCINYLCHOLINE 200MG/10ML SYR IM ONE
--- NOTE | 2019-12-24 | NUR ---
ASSESSMENT VENT ALARMING WITH HIGH PEEP, PT ASYNCHRONOUS WITH VENT. FENTANYL, VERSED, PROPOFOL AND LEVOPHED INFUSING WITHOUT DIFFICULTY. OGT TO Viola.I.W.Felipe., SCD IN PLACE. PRESTON CATH TO BSD. ASSESSMENT COMPLETE, SEE FLOW SHEET.
[2019-12-24 01:04] LABS: ABG BASE EXCESS 2.7 mmol/L (-2.0-3.0); ABG OXYGEN SATURATION 93.6 % (95.0-99.0); ABG PCO2 32 mmHg (32-45)
[2019-12-24] MEDS: PROPOFOL 1000 MG/100 ML IV PRN ×3 (01:37→09:42)
--- NOTE | 2019-12-24 03:20 | NUR ---
ASSESSMENT PT SYNCHRONOUS WITH VENT. FENTANYL, VERSED, PROPOFOL AND LEVOPHED INFUSING WITHOUT DIFFICULTY. OGT TO L.I.WGregorio., SCD IN PLACE. PRESTON CATH TO BSD. ASSESSMENT COMPLETED, SEE FLOW SHEET. VSS, SEE ABG.
[2019-12-24 04:13] LABS: ABG BASE EXCESS 1.6 mmol/L (-2.0-3.0); ABG HCO3 24.6 mmol/L (21.0-28.0); ABG OXYGEN SATURATION 96.8 % (95.0-99.0); ABG PCO2 34 mmHg (32-45)
[2019-12-24] MEDS: FUROSEMIDE 10 MG/ML 2ML VIAL IV SCH ×2 (04:21→18:13)
[2019-12-24] MEDS: INSULIN HUMULIN R 100 UNIT/ML 3ML SQ SCH ×3 (05:24→18:00)
[2019-12-24 06:23] LABS: MEAN CORPUSCULAR HEMOGLOBIN 29.8 pg (27.0-33.0); MEAN CORPUSCULAR HGB CONC 34.4 g/dL (32.0-36.0); MEAN CORPUSCULAR VOLUME 86.5 fL (79-99); RED BLOOD CELL COUNT(AUTO) 5.2 MIL/uL (4.00-5.50); RED CELL DISTRIBUTION WIDTH 13.1 % (11.0-15.5); WHITE BLOOD COUNT (AUTO) 21.1 K/uL (4.8-10.8)
[2019-12-24 06:44] LABS: CREATININE 1.1 mg/dL (0.5-1.5); POTASSIUM 3.5 mmol/L (3.5-5.1)
[2019-12-24] MEDS ORDERED: LIDOCAINE HCL-MPF 1% 2ML VIAL IV PRN (08:00)
[2019-12-24] MEDS ORDERED: DOXYCYCLINE HYCLATE 100 MG TABLET PO ONE (08:44)
[2019-12-24] MEDS: APIXABAN 5 MG TABLET PO SCH ×2 (09:04→22:00)
[2019-12-24] MEDS: POTASSIUM CHLORIDE 20MEQ/100ML 100 ML IV PRN ×2 (09:04→18:14)
[2019-12-24] MEDS: ASCORBIC ACID 500 MG TAB PO SCH (09:04)
[2019-12-24] MEDS: METHYLPREDNISOLONE SOD SUCC 40MG/ML 1ML IVP SCH ×3 (09:04→22:07)
[2019-12-24] MEDS: MULTIVITAMIN WITH MINERALS TABLET PO SCH (09:05)
[2019-12-24] MEDS: FAMOTIDINE/PF 20 MG/2 ML VIAL IV SCH ×2 (09:05→22:00)
[2019-12-24] MEDS: DOXYCYCLINE HYCLATE 100 MG TABLET PO SCH ×2 (10:07→22:01)
[2019-12-24] MEDS: MIDAZOLAM HCL 50 MG in SODIUM CHLORIDE 0.9% 50 ML IV SCH (22:39)
[2019-12-25] VITALS (35 sets, daily range): BP systolic 95–166; BP diastolic 58–87
[2019-12-25] MEDS: FUROSEMIDE 10 MG/ML 2ML VIAL IV SCH ×2 (04:38→16:21)
[2019-12-25 04:42] LABS: BASOPHILS % (AUTO) 0.1 % (0.0-5.0); HEMATOCRIT 42.9 % (36-48); LYMPHOCYTES % (AUTO) 2.2 % (21.0-51.0); MEAN CORPUSCULAR HEMOGLOBIN 29.6 pg (27.0-33.0); MEAN CORPUSCULAR HGB CONC 34.3 g/dL (32.0-36.0); MEAN CORPUSCULAR VOLUME 86.5 fL (79-99); MONOCYTES % (AUTO) 1.8 % (3.0-13.0); NEUTROPHILS % (AUTO) 95.3 % (40.0-77.0); PLATELET COUNT (AUTO) 185 K/uL (130-400); RED BLOOD CELL COUNT(AUTO) 4.96 MIL/uL (4.00-5.50); RED CELL DISTRIBUTION WIDTH 13.3 % (11.0-15.5); WHITE BLOOD COUNT (AUTO) 17.3 K/uL (4.8-10.8)
[2019-12-25 05:08] LABS: ALBUMIN 1.8 g/dL (3.5-5.0); BILIRUBIN,TOTAL 1.3 mg/dL (0.2-1.0); TOTAL PROTEIN, SERUM 6.1 g/dL (6.0-8.3)
[2019-12-25] MEDS: INSULIN HUMULIN R 100 UNIT/ML 3ML SQ SCH ×5 (05:19→23:20)
[2019-12-25] MEDS: APIXABAN 5 MG TABLET PO SCH ×2 (09:27→19:44)
[2019-12-25] MEDS: MULTIVITAMIN WITH MINERALS TABLET PO SCH (09:27)
[2019-12-25] MEDS: FAMOTIDINE/PF 20 MG/2 ML VIAL IV SCH ×2 (09:27→19:44)
[2019-12-25] MEDS: ASCORBIC ACID 500 MG TAB PO SCH (09:27)
[2019-12-25] MEDS: DOXYCYCLINE HYCLATE 100 MG TABLET PO SCH ×2 (09:27→19:44)
[2019-12-25] MEDS: METHYLPREDNISOLONE SOD SUCC 40MG/ML 1ML IVP SCH ×3 (09:27→21:47)
[2019-12-25] MEDS: NOREPINEPHRINE 4MG/NS 250ML 250 ML IV SCH (14:07)
[2019-12-25] MEDS: MIDAZOLAM HCL 50 MG in SODIUM CHLORIDE 0.9% 50 ML IV SCH (19:44)
[2019-12-25] MEDS: FENTANYL 2500MCG+NS 250ML 250 ML IV SCH (19:45)
[2019-12-26] VITALS (24 sets, daily range): BP systolic 88–119; BP diastolic 53–81
[2019-12-26 04:04] LABS: BASOPHILS % (AUTO) 0.1 % (0.0-5.0); LYMPHOCYTES % (AUTO) 1.8 % (21.0-51.0); MEAN CORPUSCULAR HEMOGLOBIN 29.8 pg (27.0-33.0); MEAN CORPUSCULAR VOLUME 87.5 fL (79-99); MONOCYTES % (AUTO) 1.3 % (3.0-13.0); NEUTROPHILS % (AUTO) 96.3 % (40.0-77.0); PLATELET COUNT (AUTO) 172 K/uL (130-400); RED CELL DISTRIBUTION WIDTH 13.3 % (11.0-15.5)
[2019-12-26] MEDS: FUROSEMIDE 10 MG/ML 2ML VIAL IV SCH (04:07)
[2019-12-26 04:21] LABS: MAGNESIUM 2.5 mg/dL (1.80-2.40); POTASSIUM 3.6 mmol/L (3.5-5.1)
[2019-12-26] MEDS: INSULIN HUMULIN R 100 UNIT/ML 3ML SQ SCH ×3 (05:06→17:17)
[2019-12-26 08:04] LABS: INR 1.12 (0.85-1.15); PARTIAL THROMBOPLASTIN TIME 29.6 SEC (26.3-35.5)
[2019-12-26 08:05] LABS: ABG BASE EXCESS -0.2 mmol/L (-2.0-3.0); ABG HCO3 22.6 mmol/L (21.0-28.0); ABG OXYGEN SATURATION 90.2 % (95.0-99.0); ABG PCO2 32 mmHg (32-45)
[2019-12-26] MEDS: POTASSIUM CHLORIDE 20MEQ/100ML 100 ML IV PRN (08:59)
[2019-12-26] MEDS: METHYLPREDNISOLONE SOD SUCC 40MG/ML 1ML IVP SCH ×3 (09:00→21:02)
[2019-12-26] MEDS: FAMOTIDINE/PF 20 MG/2 ML VIAL IV SCH ×2 (09:00→21:01)
[2019-12-26] MEDS: ASCORBIC ACID 500 MG TAB PO SCH (09:00)
[2019-12-26] MEDS: DOXYCYCLINE HYCLATE 100 MG TABLET PO SCH ×2 (09:00→21:01)
[2019-12-26] MEDS: MULTIVITAMIN WITH MINERALS TABLET PO SCH (09:00)
[2019-12-26] MEDS: APIXABAN 5 MG TABLET PO SCH ×2 (09:00→21:02)
[2019-12-26 09:25] LABS: ALBUMIN 1.8 g/dL (3.5-5.0); BILIRUBIN,DIRECT 0.3 mg/dL (0.0-0.3); CRP QUANTITATIVE 150.3 mg/L (0.00-9.0)
[2019-12-26] MEDS ORDERED: PHARMACY COMMUNICATION MISC SCH (11:15)
--- NOTE | 2019-12-26 14:34 | NUR ---
RD FOLLOW UP NOTIFICATION FOR TUBE FEEDING RECEIVED. RECOMMEND CONTINUOUS VITAL AF 1.2 INITIATED AT 15MLS FIRST 5 HRS. GOAL RATE:45MLS RECOMMEND FLUSH 200ML Q6 HRS. RECOMMENDATIONS FAXED TO 2C, COVERING RN NOTIFIED. RD TO CONTINUE TO MONITOR. PLEASE NOTIFY ADDITIONAL NUTRITION CONCERNS ARISE. THANK YOU.
[2019-12-26] MEDS ORDERED: MIDAZOLAM 50MG-0.9% NS 50ML 50 ML BAG IV SCH (19:00)
[2019-12-26] MEDS: MIDAZOLAM HCL 50 MG in SODIUM CHLORIDE 0.9% 50 ML IV SCH (21:27)
[2019-12-27] VITALS (25 sets, daily range): BP systolic 86–138; BP diastolic 50–81
[2019-12-27 05:05] LABS: MEAN CORPUSCULAR HEMOGLOBIN 29.8 pg (27.0-33.0); MEAN CORPUSCULAR HGB CONC 33.6 g/dL (32.0-36.0); MEAN CORPUSCULAR VOLUME 88.8 fL (79-99); RED BLOOD CELL COUNT(AUTO) 4.39 MIL/uL (4.00-5.50); RED CELL DISTRIBUTION WIDTH 13.6 % (11.0-15.5); WHITE BLOOD COUNT (AUTO) 11.4 K/uL (4.8-10.8)
[2019-12-27 05:18] LABS: ABG BASE EXCESS 0.7 mmol/L (-2.0-3.0); ABG HCO3 23.9 mmol/L (21.0-28.0); ABG OXYGEN SATURATION 97.4 % (95.0-99.0); ABG PCO2 34 mmHg (32-45)
[2019-12-27 05:27] LABS: ALBUMIN 1.7 g/dL (3.5-5.0); POTASSIUM 3.8 mmol/L (3.5-5.1); TOTAL PROTEIN, SERUM 5.7 g/dL (6.0-8.3)
[2019-12-27] MEDS: INSULIN HUMULIN R 100 UNIT/ML 3ML SQ SCH ×5 (06:00→23:45)
[2019-12-27] MEDS: ASCORBIC ACID 500 MG TAB PO SCH (08:42)
[2019-12-27] MEDS: METHYLPREDNISOLONE SOD SUCC 40MG/ML 1ML IVP SCH ×3 (08:42→21:50)
[2019-12-27] MEDS: FAMOTIDINE/PF 20 MG/2 ML VIAL IV SCH ×2 (08:42→21:50)
[2019-12-27] MEDS: DOXYCYCLINE HYCLATE 100 MG TABLET PO SCH ×2 (08:43→21:50)
[2019-12-27] MEDS: MULTIVITAMIN WITH MINERALS TABLET PO SCH (08:43)
[2019-12-27] MEDS: APIXABAN 5 MG TABLET PO SCH ×2 (08:43→21:50)
[2019-12-27] MEDS: FENTANYL 2500MCG+NS 250ML 250 ML IV SCH (13:32)
[2019-12-28] VITALS (21 sets, daily range): BP systolic 90–131; BP diastolic 45–79
[2019-12-28 03:16] LABS: ABG BASE EXCESS 1.7 mmol/L (-2.0-3.0); ABG HCO3 26.1 mmol/L (21.0-28.0); ABG OXYGEN SATURATION 92.8 % (95.0-99.0); ABG PCO2 40 mmHg (32-45)
[2019-12-28] MEDS: INSULIN HUMULIN R 100 UNIT/ML 3ML SQ SCH ×4 (06:00→23:48)
[2019-12-28 06:37] LABS: HEMATOCRIT 38.9 % (36-48); MEAN CORPUSCULAR HEMOGLOBIN 29.9 pg (27.0-33.0); MEAN CORPUSCULAR HGB CONC 33.2 g/dL (32.0-36.0); RED BLOOD CELL COUNT(AUTO) 4.32 MIL/uL (4.00-5.50); WHITE BLOOD COUNT (AUTO) 10.9 K/uL (4.8-10.8)
[2019-12-28 06:57] LABS: ALBUMIN 1.6 g/dL (3.5-5.0); BILIRUBIN,TOTAL 0.8 mg/dL (0.2-1.0); CREATININE 0.7 mg/dL (0.5-1.5); POTASSIUM 4.2 mmol/L (3.5-5.1); TOTAL PROTEIN, SERUM 5.5 g/dL (6.0-8.3)
[2019-12-28] MEDS: DOXYCYCLINE HYCLATE 100 MG TABLET PO SCH ×2 (08:38→20:19)
[2019-12-28] MEDS: METHYLPREDNISOLONE SOD SUCC 40MG/ML 1ML IVP SCH ×3 (08:38→20:19)
[2019-12-28] MEDS: MULTIVITAMIN WITH MINERALS TABLET PO SCH (08:38)
[2019-12-28] MEDS: ASCORBIC ACID 500 MG TAB PO SCH (08:38)
[2019-12-28] MEDS: FAMOTIDINE/PF 20 MG/2 ML VIAL IV SCH ×2 (08:38→20:18)
[2019-12-28] MEDS: APIXABAN 5 MG TABLET PO SCH ×2 (08:38→20:19)
[2019-12-28] MEDS: MIDAZOLAM HCL 50 MG in SODIUM CHLORIDE 0.9% 50 ML IV SCH (08:39)
[2019-12-28] MEDS: FENTANYL 2500MCG+NS 250ML 250 ML IV SCH (15:54)
[2019-12-28] MEDS: LACTULOSE 20 GM/30 ML UDCUP PO SCH (20:19)
[2019-12-29] VITALS (10 sets, daily range): BP systolic 94–143; BP diastolic 54–73
[2019-12-29] MEDS: MIDAZOLAM HCL 50 MG in SODIUM CHLORIDE 0.9% 50 ML IV SCH (01:54)
[2019-12-29 03:31] LABS: ABG BASE EXCESS 1.5 mmol/L (-2.0-3.0); ABG HCO3 26.6 mmol/L (21.0-28.0); ABG OXYGEN SATURATION 79.1 % (95.0-99.0); ABG PCO2 44 mmHg (32-45)
[2019-12-29 03:54] LABS: HEMATOCRIT 37.9 % (36-48); MEAN CORPUSCULAR HEMOGLOBIN 29.6 pg (27.0-33.0); MEAN CORPUSCULAR HGB CONC 32.2 g/dL (32.0-36.0); RED BLOOD CELL COUNT(AUTO) 4.12 MIL/uL (4.00-5.50); RED CELL DISTRIBUTION WIDTH 14.3 % (11.0-15.5); WHITE BLOOD COUNT (AUTO) 9.6 K/uL (4.8-10.8)
[2019-12-29 04:26] LABS: ALBUMIN 1.5 g/dL (3.5-5.0); BILIRUBIN,TOTAL 0.6 mg/dL (0.2-1.0); CREATININE 0.7 mg/dL (0.5-1.5); CRP QUANTITATIVE 74.7 mg/L (0.00-9.0); POTASSIUM 4.3 mmol/L (3.5-5.1); TOTAL PROTEIN, SERUM 5.2 g/dL (6.0-8.3)
[2019-12-29] MEDS: INSULIN HUMULIN R 100 UNIT/ML 3ML SQ SCH ×3 (06:00→18:00)
--- NOTE | 2019-12-29 07:20 | NUR ---
PT IS ASSESSED PER DR. ORTIZ AND NO NEW ORDERS NOTED.
[2019-12-29] MEDS: ASCORBIC ACID 500 MG TAB PO SCH (08:37)
[2019-12-29] MEDS: FAMOTIDINE/PF 20 MG/2 ML VIAL IV SCH ×2 (08:37→20:10)
[2019-12-29] MEDS: APIXABAN 5 MG TABLET PO SCH ×2 (08:37→20:10)
[2019-12-29] MEDS: LACTULOSE 20 GM/30 ML UDCUP PO SCH ×2 (08:37→20:10)
[2019-12-29] MEDS: METHYLPREDNISOLONE SOD SUCC 40MG/ML 1ML IVP SCH ×3 (08:38→22:30)
[2019-12-29] MEDS: DOXYCYCLINE HYCLATE 100 MG TABLET PO SCH ×2 (08:39→20:10)
[2019-12-29] MEDS: MULTIVITAMIN WITH MINERALS TABLET PO SCH (08:39)
[2019-12-30] VITALS (17 sets, daily range): BP systolic 89–101; BP diastolic 53–69
--- NOTE | 2019-12-30 04:44 | NUR ---
pt positioned supine Pt proned upon shift, repositioned pt supine. Pt tolerated without complications, skin care complete, no new areas of breakdown noted at this time.
[2019-12-30 04:45] LABS: ABG BASE EXCESS -0.5 mmol/L (-2.0-3.0); ABG HCO3 24.2 mmol/L (21.0-28.0); ABG PCO2 40 mmHg (32-45)
[2019-12-30 05:16] LABS: ALBUMIN 1.5 g/dL (3.5-5.0); BILIRUBIN,TOTAL 0.6 mg/dL (0.2-1.0); CREATININE 0.7 mg/dL (0.5-1.5); POTASSIUM 4.4 mmol/L (3.5-5.1); TOTAL PROTEIN, SERUM 5.2 g/dL (6.0-8.3)
[2019-12-30] MEDS: INSULIN HUMULIN R 100 UNIT/ML 3ML SQ SCH ×4 (06:00→18:00)
[2019-12-30] MEDS: METHYLPREDNISOLONE SOD SUCC 40MG/ML 1ML IVP SCH ×3 (08:31→20:54)
[2019-12-30] MEDS: MULTIVITAMIN WITH MINERALS TABLET PO SCH (08:32)
[2019-12-30] MEDS: APIXABAN 5 MG TABLET PO SCH ×2 (08:32→20:54)
[2019-12-30] MEDS: FAMOTIDINE/PF 20 MG/2 ML VIAL IV SCH ×2 (08:32→20:53)
[2019-12-30] MEDS: DOXYCYCLINE HYCLATE 100 MG TABLET PO SCH ×2 (08:32→20:54)
[2019-12-30] MEDS: ASCORBIC ACID 500 MG TAB PO SCH (08:32)
[2019-12-30] MEDS: LACTULOSE 20 GM/30 ML UDCUP PO SCH ×2 (08:32→19:23)
[2019-12-30] MEDS: MIDAZOLAM 50MG-0.9% NS 50ML 50 ML IV SCH (20:54)
[2019-12-31] VITALS (61 sets, daily range): BP systolic 84–143; BP diastolic 53–88
[2019-12-31] MEDS: FENTANYL 2500MCG+NS 250ML 250 ML IV SCH (02:07)
[2019-12-31] MEDS: INSULIN HUMULIN R 100 UNIT/ML 3ML SQ SCH ×5 (05:51→23:54)
[2019-12-31] MEDS: LACTULOSE 20 GM/30 ML UDCUP PO SCH ×2 (09:00→21:00)
[2019-12-31] MEDS: MULTIVITAMIN WITH MINERALS TABLET PO SCH (09:08)
[2019-12-31] MEDS: METHYLPREDNISOLONE SOD SUCC 40MG/ML 1ML IVP SCH ×2 (09:08→21:06)
[2019-12-31] MEDS: APIXABAN 5 MG TABLET PO SCH ×2 (09:08→21:07)
[2019-12-31] MEDS: ASCORBIC ACID 500 MG TAB PO SCH (09:08)
[2019-12-31] MEDS: MIDAZOLAM 50MG-0.9% NS 50ML 50 ML IV SCH (09:08)
[2019-12-31] MEDS: DOXYCYCLINE HYCLATE 100 MG TABLET PO SCH ×2 (09:08→21:06)
[2019-12-31] MEDS: FAMOTIDINE/PF 20 MG/2 ML VIAL IV SCH ×2 (09:09→21:06)
[2019-12-31 12:09] LABS: ABG BASE EXCESS 2.4 mmol/L (-2.0-3.0); ABG PCO2 42 mmHg (32-45)
[2019-12-31 12:19] LABS: ABG BASE EXCESS 2.5 mmol/L (-2.0-3.0); ABG HCO3 26.7 mmol/L (21.0-28.0); ABG OXYGEN SATURATION 79.3 % (95.0-99.0); ABG PCO2 40 mmHg (32-45)
[2020-01-01] VITALS (79 sets, daily range): BP systolic 88–179; BP diastolic 55–103
[2020-01-01] MEDS: INSULIN HUMULIN R 100 UNIT/ML 3ML SQ SCH ×4 (06:00→23:21)
[2020-01-01 06:54] LABS: BASOPHILS % (AUTO) 0.1 % (0.0-5.0); HEMATOCRIT 40.4 % (36-48); LYMPHOCYTES % (AUTO) 4.4 % (21.0-51.0); MEAN CORPUSCULAR HEMOGLOBIN 29.5 pg (27.0-33.0); MEAN CORPUSCULAR HGB CONC 31.7 g/dL (32.0-36.0); MEAN CORPUSCULAR VOLUME 93.1 fL (79-99); MONOCYTES % (AUTO) 1.5 % (3.0-13.0); NEUTROPHILS % (AUTO) 93.4 % (40.0-77.0); PLATELET COUNT (AUTO) 74 K/uL (130-400); RED BLOOD CELL COUNT(AUTO) 4.34 MIL/uL (4.00-5.50); RED CELL DISTRIBUTION WIDTH 14.2 % (11.0-15.5); WHITE BLOOD COUNT (AUTO) 6.9 K/uL (4.8-10.8)
[2020-01-01 07:05] LABS: CREATININE 0.7 mg/dL (0.5-1.5); MAGNESIUM 2.4 mg/dL (1.80-2.40); PHOSPHORUS 3.1 mg/dL (2.5-4.9); POTASSIUM 4.9 mmol/L (3.5-5.1)
[2020-01-01 08:49] LABS: ABG OXYGEN SATURATION 98.8 % (95.0-99.0); ABG PCO2 39 mmHg (32-45)
[2020-01-01] MEDS: LACTULOSE 20 GM/30 ML UDCUP PO SCH ×2 (09:00→22:42)
[2020-01-01] MEDS: MULTIVITAMIN WITH MINERALS TABLET PO SCH (10:11)
[2020-01-01] MEDS: ASCORBIC ACID 500 MG TAB PO SCH (10:11)
[2020-01-01] MEDS: DOXYCYCLINE HYCLATE 100 MG TABLET PO SCH ×2 (10:11→22:42)
[2020-01-01] MEDS: FAMOTIDINE/PF 20 MG/2 ML VIAL IV SCH ×2 (10:11→22:42)
[2020-01-01] MEDS: METHYLPREDNISOLONE SOD SUCC 40MG/ML 1ML IVP SCH ×2 (10:11→22:42)
[2020-01-01] MEDS: APIXABAN 5 MG TABLET PO SCH ×2 (10:11→22:42)
[2020-01-01] MEDS: MIDAZOLAM 50MG-0.9% NS 50ML 50 ML IV SCH (17:18)
[2020-01-02] VITALS (82 sets, daily range): BP systolic 88–141; BP diastolic 52–71
[2020-01-02 03:31] LABS: ABG BASE EXCESS 0.1 mmol/L (-2.0-3.0); ABG HCO3 25.6 mmol/L (21.0-28.0); ABG OXYGEN SATURATION 86.5 % (95.0-99.0); ABG PCO2 45 mmHg (32-45)
[2020-01-02] MEDS: MIDAZOLAM 50MG-0.9% NS 50ML 50 ML IV SCH ×3 (05:06→23:56)
[2020-01-02] MEDS: INSULIN HUMULIN R 100 UNIT/ML 3ML SQ SCH ×3 (06:00→18:00)
[2020-01-02 06:06] LABS: BASOPHILS % (AUTO) 0.1 % (0.0-5.0); EOSINOPHILS % (AUTO) 0.1 % (0.0-8.0); HEMATOCRIT 39.4 % (36-48); LYMPHOCYTES % (AUTO) 3.3 % (21.0-51.0); MEAN CORPUSCULAR HEMOGLOBIN 29.6 pg (27.0-33.0); MEAN CORPUSCULAR VOLUME 92.5 fL (79-99); MONOCYTES % (AUTO) 1.5 % (3.0-13.0); NEUTROPHILS % (AUTO) 94.4 % (40.0-77.0); PLATELET COUNT (AUTO) 62 K/uL (130-400); RED BLOOD CELL COUNT(AUTO) 4.26 MIL/uL (4.00-5.50); RED CELL DISTRIBUTION WIDTH 14.5 % (11.0-15.5); WHITE BLOOD COUNT (AUTO) 7.3 K/uL (4.8-10.8)
[2020-01-02 06:26] LABS: ALBUMIN 1.3 g/dL (3.5-5.0); BILIRUBIN,TOTAL 0.3 mg/dL (0.2-1.0); CREATININE 0.5 mg/dL (0.5-1.5); PHOSPHORUS 2.3 mg/dL (2.5-4.9); POTASSIUM 4.6 mmol/L (3.5-5.1); TOTAL PROTEIN, SERUM 5.2 g/dL (6.0-8.3)
[2020-01-02] MEDS: FAMOTIDINE/PF 20 MG/2 ML VIAL IV SCH ×2 (08:37→21:42)
[2020-01-02] MEDS: MULTIVITAMIN WITH MINERALS TABLET PO SCH (08:38)
[2020-01-02] MEDS: METHYLPREDNISOLONE SOD SUCC 40MG/ML 1ML IVP SCH ×2 (08:38→21:42)
[2020-01-02] MEDS: LACTULOSE 20 GM/30 ML UDCUP PO SCH ×2 (08:39→21:42)
[2020-01-02] MEDS: APIXABAN 5 MG TABLET PO SCH ×2 (08:39→21:42)
[2020-01-02] MEDS: ASCORBIC ACID 500 MG TAB PO SCH (08:42)
[2020-01-02] MEDS: DOXYCYCLINE HYCLATE 100 MG TABLET PO SCH ×2 (08:42→21:42)
[2020-01-02] MEDS: FENTANYL 2500MCG+NS 250ML 250 ML IV SCH (09:06)
--- NOTE | 2020-01-02 23:50 | NUR ---
HAND OFF REPORT GIVEN TO LUPE HARRELL
[2020-01-03] VITALS (66 sets, daily range): BP systolic 82–144; BP diastolic 48–90
[2020-01-03] MEDS: FENTANYL 2500MCG+NS 250ML 250 ML IV SCH ×2 (00:39→19:29)
[2020-01-03 03:21] LABS: ABG BASE EXCESS 0.2 mmol/L (-2.0-3.0); ABG OXYGEN SATURATION 96.8 % (95.0-99.0); ABG PCO2 46 mmHg (32-45)
[2020-01-03 03:50] LABS: HEMATOCRIT 38.5 % (36-48); MEAN CORPUSCULAR HEMOGLOBIN 29.8 pg (27.0-33.0); MEAN CORPUSCULAR HGB CONC 31.7 g/dL (32.0-36.0); MEAN CORPUSCULAR VOLUME 93.9 fL (79-99); RED BLOOD CELL COUNT(AUTO) 4.1 MIL/uL (4.00-5.50); RED CELL DISTRIBUTION WIDTH 14.7 % (11.0-15.5); WHITE BLOOD COUNT (AUTO) 8.2 K/uL (4.8-10.8)
[2020-01-03 04:05] LABS: ALBUMIN 1.4 g/dL (3.5-5.0); BILIRUBIN,TOTAL 0.4 mg/dL (0.2-1.0); CREATININE 0.6 mg/dL (0.5-1.5); MAGNESIUM 2.3 mg/dL (1.80-2.40); PHOSPHORUS 2.2 mg/dL (2.5-4.9); POTASSIUM 4.9 mmol/L (3.5-5.1); TOTAL PROTEIN, SERUM 5.1 g/dL (6.0-8.3)
[2020-01-03] MEDS: INSULIN HUMULIN R 100 UNIT/ML 3ML SQ SCH ×4 (06:00→18:00)
[2020-01-03] MEDS: MULTIVITAMIN WITH MINERALS TABLET PO SCH (08:23)
[2020-01-03] MEDS: DOXYCYCLINE HYCLATE 100 MG TABLET PO SCH (08:23)
[2020-01-03] MEDS: ASCORBIC ACID 500 MG TAB PO SCH (08:23)
[2020-01-03] MEDS: APIXABAN 5 MG TABLET PO SCH ×2 (08:23→20:09)
[2020-01-03] MEDS: METHYLPREDNISOLONE SOD SUCC 40MG/ML 1ML IVP SCH ×2 (08:24→20:07)
[2020-01-03] MEDS: LACTULOSE 20 GM/30 ML UDCUP PO SCH ×2 (08:24→20:08)
[2020-01-03] MEDS: FAMOTIDINE/PF 20 MG/2 ML VIAL IV SCH ×2 (08:24→20:15)
[2020-01-03] MEDS ORDERED: ROCURONIUM BROMIDE 10MG/1ML 5ML VL IV SCH (12:00)
[2020-01-03] MEDS ORDERED: PHARMACY COMMUNICATION MISC SCH (12:00)
[2020-01-03] MEDS ORDERED: SUCCINYLCHOLINE 200MG/10ML SYR ONE (12:00)
[2020-01-03] MEDS ORDERED: PROPOFOL 10 MG/ML 20ML VIAL IV ONE (12:00)
--- NOTE | 2020-01-03 12:30 | NUR ---
ETT ADVANCED ETT ADVANCED BY OUTSIDE EVENT SALES SPECIALIST, HANH PELAEZ; CXR CONFIRMED CORRECT PLACEMENT; PATIENT GIVEN 30MG IV ROCURONIUM X1 BEFORE DEFLATING CUFF AND ADVANCING; PEEP PRESSURE DISCONTINUED PER JUAN BURT NP. NO COMPLICATIONS NOTED; OGT REPLACED AND PLACEMENT CONFIRMED VIA CXR AND AIR BOLUS
[2020-01-03] MEDS: MIDAZOLAM 50MG-0.9% NS 50ML 50 ML IV SCH (16:45)
[2020-01-03] MEDS: NOREPINEPHRINE 4MG/NS 250ML 250 ML IV SCH (16:47)
[2020-01-04] VITALS (93 sets, daily range): BP systolic 86–142; BP diastolic 52–80
[2020-01-04] MEDS: MIDAZOLAM 50MG-0.9% NS 50ML 50 ML IV SCH ×2 (04:05→08:59)
[2020-01-04] MEDS: INSULIN HUMULIN R 100 UNIT/ML 3ML SQ SCH ×4 (06:00→17:14)
[2020-01-04 06:44] LABS: HEMATOCRIT 38.5 % (36-48); MEAN CORPUSCULAR HEMOGLOBIN 29.8 pg (27.0-33.0); MEAN CORPUSCULAR HGB CONC 31.7 g/dL (32.0-36.0); MEAN CORPUSCULAR VOLUME 93.9 fL (79-99); NUCLEATED RED BLOOD CELLS 0.2 % (0.0-0.19); RED BLOOD CELL COUNT(AUTO) 4.1 MIL/uL (4.00-5.50); RED CELL DISTRIBUTION WIDTH 14.9 % (11.0-15.5); WHITE BLOOD COUNT (AUTO) 8.2 K/uL (4.8-10.8)
[2020-01-04 06:47] LABS: CREATININE 0.5 mg/dL (0.5-1.5); POTASSIUM 4.6 mmol/L (3.5-5.1)
[2020-01-04 06:55] LABS: ALBUMIN 1.4 g/dL (3.5-5.0); BILIRUBIN,TOTAL 0.4 mg/dL (0.2-1.0); TOTAL PROTEIN, SERUM 5.1 g/dL (6.0-8.3)
[2020-01-04] MEDS: FAMOTIDINE/PF 20 MG/2 ML VIAL IV SCH ×2 (08:55→20:48)
[2020-01-04] MEDS: ASCORBIC ACID 500 MG TAB PO SCH (08:55)
[2020-01-04] MEDS: APIXABAN 5 MG TABLET PO SCH ×2 (08:55→20:48)
[2020-01-04] MEDS: MULTIVITAMIN WITH MINERALS TABLET PO SCH (08:56)
[2020-01-04] MEDS: METHYLPREDNISOLONE SOD SUCC 40MG/ML 1ML IVP SCH ×2 (08:56→20:48)
[2020-01-04] MEDS: LACTULOSE 20 GM/30 ML UDCUP PO SCH ×2 (08:56→20:48)
[2020-01-04] MEDS: FENTANYL 2500MCG+NS 250ML 250 ML IV SCH ×2 (09:00→17:38)
[2020-01-04] MEDS: MIDAZOLAM 100MG-0.9% NS 100ML 100 ML IV SCH (17:46)
[2020-01-05] VITALS (63 sets, daily range): BP systolic 85–126; BP diastolic 44–74
[2020-01-05 04:09] LABS: HEMATOCRIT 38.2 % (36-48); MEAN CORPUSCULAR HEMOGLOBIN 30.1 pg (27.0-33.0); MEAN CORPUSCULAR HGB CONC 32.2 g/dL (32.0-36.0); MEAN CORPUSCULAR VOLUME 93.4 fL (79-99); NUCLEATED RED BLOOD CELLS 0.4 % (0.0-0.19); RED BLOOD CELL COUNT(AUTO) 4.09 MIL/uL (4.00-5.50); RED CELL DISTRIBUTION WIDTH 14.9 % (11.0-15.5); WHITE BLOOD COUNT (AUTO) 8.1 K/uL (4.8-10.8)
[2020-01-05 04:14] LABS: CREATININE 0.6 mg/dL (0.5-1.5); POTASSIUM 4.7 mmol/L (3.5-5.1)
[2020-01-05] MEDS: MIDAZOLAM 100MG-0.9% NS 100ML 100 ML IV SCH ×2 (04:30→15:16)
[2020-01-05 04:36] LABS: ABG HCO3 21.4 mmol/L (21.0-28.0); ABG OXYGEN SATURATION 91.3 % (95.0-99.0); ABG PCO2 40 mmHg (32-45)
[2020-01-05] MEDS: INSULIN HUMULIN R 100 UNIT/ML 3ML SQ SCH ×4 (06:00→18:00)
[2020-01-05] MEDS: ASCORBIC ACID 500 MG TAB PO SCH (08:06)
[2020-01-05] MEDS: MULTIVITAMIN WITH MINERALS TABLET PO SCH (08:06)
[2020-01-05] MEDS: LACTULOSE 20 GM/30 ML UDCUP PO SCH ×2 (08:06→21:54)
[2020-01-05] MEDS: FAMOTIDINE/PF 20 MG/2 ML VIAL IV SCH ×2 (08:07→21:54)
[2020-01-05] MEDS: APIXABAN 5 MG TABLET PO SCH ×2 (08:07→21:54)
[2020-01-05] MEDS: METHYLPREDNISOLONE SOD SUCC 40MG/ML 1ML IVP SCH (08:07)
[2020-01-05] MEDS: FENTANYL 2500MCG+NS 250ML 250 ML IV SCH (12:41)
[2020-01-05] MEDS: VECURONIUM BROMIDE 50 MG in SODIUM CHLORIDE 0.9% 50 ML IV SCH (17:37)
[2020-01-05] MEDS: FUROSEMIDE 10 MG/ML 4ML VIAL IV SCH (18:22)
[2020-01-06] VITALS (80 sets, daily range): BP systolic 76–149; BP diastolic 35–88
[2020-01-06] MEDS: FENTANYL 2500MCG+NS 250ML 250 ML IV SCH ×3 (00:06→18:34)
[2020-01-06] MEDS: FUROSEMIDE 10 MG/ML 4ML VIAL IV SCH ×3 (01:43→17:37)
[2020-01-06] MEDS: MIDAZOLAM 100MG-0.9% NS 100ML 100 ML IV SCH ×3 (01:55→21:11)
[2020-01-06] MEDS: VECURONIUM BROMIDE 50 MG in SODIUM CHLORIDE 0.9% 50 ML IV SCH ×2 (03:55→16:56)
[2020-01-06 04:15] LABS: ABG BASE EXCESS 5.3 mmol/L (-2.0-3.0); ABG OXYGEN SATURATION 94.8 % (95.0-99.0); ABG PCO2 50 mmHg (32-45)
[2020-01-06 05:45] LABS: BASOPHILS % (AUTO) 0.3 % (0.0-5.0); EOSINOPHILS % (AUTO) 0.1 % (0.0-8.0); HEMATOCRIT 38.1 % (36-48); LYMPHOCYTES % (AUTO) 10.3 % (21.0-51.0); MEAN CORPUSCULAR HEMOGLOBIN 29.8 pg (27.0-33.0); MEAN CORPUSCULAR VOLUME 93.2 fL (79-99); MONOCYTES % (AUTO) 3.5 % (3.0-13.0); NEUTROPHILS % (AUTO) 82.5 % (40.0-77.0); NUCLEATED RED BLOOD CELLS 0.4 % (0.0-0.19); PLATELET COUNT (AUTO) 130 K/uL (130-400); RED BLOOD CELL COUNT(AUTO) 4.09 MIL/uL (4.00-5.50); WHITE BLOOD COUNT (AUTO) 7.4 K/uL (4.8-10.8)
[2020-01-06] MEDS: INSULIN HUMULIN R 100 UNIT/ML 3ML SQ SCH ×4 (06:00→17:38)
[2020-01-06 06:20] LABS: ALBUMIN 1.3 g/dL (3.5-5.0); BILIRUBIN,TOTAL 0.4 mg/dL (0.2-1.0); CREATININE 0.5 mg/dL (0.5-1.5); MAGNESIUM 1.9 mg/dL (1.80-2.40); PHOSPHORUS 2.4 mg/dL (2.5-4.9); POTASSIUM 3.4 mmol/L (3.5-5.1); TOTAL PROTEIN, SERUM 4.7 g/dL (6.0-8.3)
[2020-01-06] MEDS: POTASSIUM CHLORIDE 20MEQ/100ML 100 ML IV PRN (07:10)
--- NOTE | 2020-01-06 08:00 | NUR ---
HANDOFF RECEIVED REPORT FROM SABRINA RN. PT STABLE, PICC C/D/I. MONITOR CARLOS. T&P TOLERATED.
[2020-01-06] MEDS: LACTULOSE 20 GM/30 ML UDCUP PO SCH ×2 (09:38→21:11)
[2020-01-06] MEDS: MULTIVITAMIN WITH MINERALS TABLET PO SCH (09:39)
[2020-01-06] MEDS: FAMOTIDINE/PF 20 MG/2 ML VIAL IV SCH ×2 (09:39→21:11)
[2020-01-06] MEDS: METHYLPREDNISOLONE SOD SUCC 40MG/ML 1ML IVP SCH (09:39)
[2020-01-06] MEDS: APIXABAN 5 MG TABLET PO SCH ×2 (09:39→21:12)
[2020-01-06] MEDS: ASCORBIC ACID 500 MG TAB PO SCH (09:41)
[2020-01-07] VITALS (80 sets, daily range): BP systolic 86–148; BP diastolic 47–82
[2020-01-07] MEDS: NOREPINEPHRINE 4MG/NS 250ML 250 ML IV SCH ×2 (00:27→18:05)
[2020-01-07] MEDS: FUROSEMIDE 10 MG/ML 4ML VIAL IV SCH ×3 (02:00→16:18)
[2020-01-07] MEDS: FENTANYL 2500MCG+NS 250ML 250 ML IV SCH ×3 (03:10→21:35)
[2020-01-07] MEDS: INSULIN HUMULIN R 100 UNIT/ML 3ML SQ SCH ×4 (06:00→18:00)
[2020-01-07] MEDS: MIDAZOLAM 100MG-0.9% NS 100ML 100 ML IV SCH ×2 (06:54→16:18)
[2020-01-07] MEDS: FAMOTIDINE/PF 20 MG/2 ML VIAL IV SCH ×2 (08:43→21:20)
[2020-01-07] MEDS: APIXABAN 5 MG TABLET PO SCH ×2 (08:43→21:21)
[2020-01-07] MEDS: MULTIVITAMIN WITH MINERALS TABLET PO SCH (08:43)
[2020-01-07] MEDS: LACTULOSE 20 GM/30 ML UDCUP PO SCH ×2 (08:43→21:21)
[2020-01-07] MEDS: METHYLPREDNISOLONE SOD SUCC 40MG/ML 1ML IVP SCH (08:43)
[2020-01-07] MEDS: ASCORBIC ACID 500 MG TAB PO SCH (08:43)
[2020-01-07] MEDS: VECURONIUM BROMIDE 50 MG in SODIUM CHLORIDE 0.9% 50 ML IV SCH (08:44)
--- NOTE | 2020-01-07 09:26 | NUR ---
RAMON ODOM ROUND UPDATED ON PT STATUS, DIAGNOSTICS AND PLAN OF CARE. CONTINUE PRESENT ORDERS. WILL ADDRESS FAMILY GOALS REGRDING PT CODE STATUS.
[2020-01-07 13:38] LABS: HEMATOCRIT 38.8 % (36-48); MEAN CORPUSCULAR HEMOGLOBIN 30.2 pg (27.0-33.0); MEAN CORPUSCULAR HGB CONC 32.7 g/dL (32.0-36.0); MEAN CORPUSCULAR VOLUME 92.4 fL (79-99); PLATELET COUNT (AUTO) 151 K/uL (130-400); RED CELL DISTRIBUTION WIDTH 15.4 % (11.0-15.5); WHITE BLOOD COUNT (AUTO) 9.3 K/uL (4.8-10.8)
[2020-01-07 13:48] LABS: CREATININE 0.6 mg/dL (0.5-1.5); POTASSIUM 3.6 mmol/L (3.5-5.1)
[2020-01-07 14:25] LABS: BAND NEUTROPHILS % (MANUAL) 9 % (0-2); LYMPHOCYTES % (MANUAL) 2 % (22-44); MAN.DIFF COMMENT-IMPRESSION MANUAL DIFFERENTIAL; MONOCYTES % (MANUAL) 4 % (2-9); SEGMENTED NEUTROPHILS % 85 % (40-70)
[2020-01-07 14:26] LABS: PLATELET MORPHOLOGY COMMENT ADEQUATE
[2020-01-07] MEDS: ARTIFICIAL TEARS 3.5 GM OINTMENT OU SCH ×3 (16:19→23:21)
[2020-01-07] MEDS: CHLORHEXIDINE GLUCONATE 473 ML MOUTHWASH MM SCH (21:21)
[2020-01-08] VITALS (88 sets, daily range): BP systolic 75–149; BP diastolic 49–88
[2020-01-08] MEDS: MIDAZOLAM 100MG-0.9% NS 100ML 100 ML IV SCH ×2 (01:03→17:38)
[2020-01-08] MEDS: FUROSEMIDE 10 MG/ML 4ML VIAL IV SCH ×3 (01:04→17:38)
[2020-01-08] MEDS: POTASSIUM CHLORIDE 20MEQ/100ML 100 ML IV PRN (01:06)
[2020-01-08 03:35] LABS: ABG BASE EXCESS 11.3 mmol/L (-2.0-3.0); ABG HCO3 34.8 mmol/L (21.0-28.0); ABG PCO2 41 mmHg (32-45)
[2020-01-08 04:46] LABS: BASOPHILS % (AUTO) 0.2 % (0.0-5.0); EOSINOPHILS % (AUTO) 0.1 % (0.0-8.0); HEMATOCRIT 37.8 % (36-48); LYMPHOCYTES % (AUTO) 5.2 % (21.0-51.0); MEAN CORPUSCULAR HEMOGLOBIN 30.2 pg (27.0-33.0); MEAN CORPUSCULAR HGB CONC 33.3 g/dL (32.0-36.0); MEAN CORPUSCULAR VOLUME 90.6 fL (79-99); MONOCYTES % (AUTO) 2.7 % (3.0-13.0); PLATELET COUNT (AUTO) 160 K/uL (130-400); RED BLOOD CELL COUNT(AUTO) 4.17 MIL/uL (4.00-5.50); RED CELL DISTRIBUTION WIDTH 15.2 % (11.0-15.5); WHITE BLOOD COUNT (AUTO) 9.1 K/uL (4.8-10.8)
[2020-01-08 04:53] LABS: ABG BASE EXCESS 9.7 mmol/L (-2.0-3.0); ABG HCO3 34.6 mmol/L (21.0-28.0); ABG OXYGEN SATURATION 95.4 % (95.0-99.0); ABG PCO2 47 mmHg (32-45)
[2020-01-08] MEDS: ARTIFICIAL TEARS 3.5 GM OINTMENT OU SCH ×3 (05:30→17:38)
[2020-01-08 05:43] LABS: B-TYPE NATRIURETIC PEPTIDE 178 pg/mL (0-100)
[2020-01-08] MEDS: INSULIN HUMULIN R 100 UNIT/ML 3ML SQ SCH ×4 (06:00→17:39)
[2020-01-08 06:10] LABS: ALBUMIN 1.4 g/dL (3.5-5.0); BILIRUBIN,TOTAL 0.4 mg/dL (0.2-1.0); CREATININE 0.5 mg/dL (0.5-1.5); PHOSPHORUS 2.4 mg/dL (2.5-4.9); POTASSIUM 3.5 mmol/L (3.5-5.1); TOTAL PROTEIN, SERUM 5.1 g/dL (6.0-8.3)
[2020-01-08] MEDS: LACTULOSE 20 GM/30 ML UDCUP PO SCH ×2 (08:02→21:02)
[2020-01-08] MEDS: FENTANYL 2500MCG+NS 250ML 250 ML IV SCH ×2 (08:02→21:03)
[2020-01-08] MEDS: APIXABAN 5 MG TABLET PO SCH ×2 (08:02→21:02)
[2020-01-08] MEDS: MULTIVITAMIN WITH MINERALS TABLET PO SCH (08:03)
[2020-01-08] MEDS: ASCORBIC ACID 500 MG TAB PO SCH (08:03)
[2020-01-08] MEDS: METHYLPREDNISOLONE SOD SUCC 40MG/ML 1ML IVP SCH (08:03)
[2020-01-08] MEDS: CHLORHEXIDINE GLUCONATE 473 ML MOUTHWASH MM SCH ×2 (08:04→21:03)
[2020-01-08 08:35] LABS: INR 1.04 (0.85-1.15); PROTHROMBIN TIME 11.2 SEC (9.6-11.6)
[2020-01-08] MEDS: FAMOTIDINE/PF 20 MG/2 ML VIAL IV SCH ×2 (10:24→21:02)
[2020-01-08] MEDS: NOREPINEPHRINE 4MG/NS 250ML 250 ML IV SCH (10:25)
[2020-01-08] MEDS ORDERED: POTASSIUM PHOS 15 mMOL+NS250ML 250 ML IV PRN (12:30)
[2020-01-09] VITALS (40 sets, daily range): BP systolic 83–125; BP diastolic 50–72
[2020-01-09] MEDS: ARTIFICIAL TEARS 3.5 GM OINTMENT OU SCH ×5 (00:06→22:11)
[2020-01-09] MEDS: FUROSEMIDE 10 MG/ML 4ML VIAL IV SCH ×3 (01:29→21:02)
[2020-01-09] MEDS: NOREPINEPHRINE 4MG/NS 250ML 250 ML IV SCH (02:01)
[2020-01-09 04:35] LABS: BASOPHILS % (AUTO) 0.1 % (0.0-5.0); EOSINOPHILS % (AUTO) 0.1 % (0.0-8.0); HEMATOCRIT 39.8 % (36-48); LYMPHOCYTES % (AUTO) 5.7 % (21.0-51.0); MEAN CORPUSCULAR HEMOGLOBIN 30.2 pg (27.0-33.0); MEAN CORPUSCULAR HGB CONC 33.4 g/dL (32.0-36.0); MEAN CORPUSCULAR VOLUME 90.5 fL (79-99); MONOCYTES % (AUTO) 3.1 % (3.0-13.0); NEUTROPHILS % (AUTO) 90.6 % (40.0-77.0); PLATELET COUNT (AUTO) 189 K/uL (130-400); WHITE BLOOD COUNT (AUTO) 9.7 K/uL (4.8-10.8)
[2020-01-09 04:47] LABS: CREATININE 0.5 mg/dL (0.5-1.5); MAGNESIUM 1.8 mg/dL (1.80-2.40); PHOSPHORUS 2.1 mg/dL (2.5-4.9)
[2020-01-09 04:52] LABS: POTASSIUM 2.7 mmol/L (3.5-5.1)
[2020-01-09] MEDS: POTASSIUM CHLORIDE 20MEQ/100ML 100 ML IV PRN ×2 (05:07→20:00)
[2020-01-09] MEDS: INSULIN HUMULIN R 100 UNIT/ML 3ML SQ SCH ×4 (09:30→18:00)
[2020-01-09] MEDS: APIXABAN 5 MG TABLET PO SCH ×2 (10:31→21:00)
[2020-01-09] MEDS: METHYLPREDNISOLONE SOD SUCC 40MG/ML 1ML IVP SCH (10:31)
[2020-01-09] MEDS: LACTULOSE 20 GM/30 ML UDCUP PO SCH ×2 (10:31→21:00)
[2020-01-09] MEDS: CHLORHEXIDINE GLUCONATE 473 ML MOUTHWASH MM SCH ×2 (10:31→22:07)
[2020-01-09] MEDS: FAMOTIDINE/PF 20 MG/2 ML VIAL IV SCH ×2 (10:31→21:02)
[2020-01-09] MEDS: MULTIVITAMIN WITH MINERALS TABLET PO SCH (10:31)
[2020-01-09] MEDS: ASCORBIC ACID 500 MG TAB PO SCH (10:31)
[2020-01-09] MEDS: MIDAZOLAM 100MG-0.9% NS 100ML 100 ML IV SCH ×2 (10:39→21:42)
[2020-01-09] MEDS ORDERED: MAGNESIUM 2GM PREMIX 50ML 50 ML IV SCH (10:45)
[2020-01-09] MEDS: FENTANYL 2500MCG+NS 250ML 250 ML IV SCH ×2 (12:08→21:42)
[2020-01-09 18:18] LABS: MAGNESIUM 2.5 mg/dL (1.80-2.40); PHOSPHORUS 3.2 mg/dL (2.5-4.9); POTASSIUM 3.3 mmol/L (3.5-5.1)
--- NOTE | 2020-01-09 20:00 | NUR ---
Assumed care of patient after report received earlier. 1700 potassium level 3.3, covered with KCL 20 meq IVPB doses x 2.
--- NOTE | 2020-01-09 23:30 | NUR ---
Turned patient from prone position to supine. O2sats down to 80's. Vent FIO2 increased from 70% to 80%. O2 sat increased to 94%.
[2020-01-10] VITALS (43 sets, daily range): BP systolic 81–168; BP diastolic 50–93
[2020-01-10] MEDS: NOREPINEPHRINE 4MG/NS 250ML 250 ML IV SCH (00:07)
[2020-01-10 03:52] LABS: BASOPHILS % (AUTO) 0.2 % (0.0-5.0); EOSINOPHILS % (AUTO) 2.4 % (0.0-8.0); HEMATOCRIT 38.8 % (36-48); LYMPHOCYTES % (AUTO) 4.4 % (21.0-51.0); MEAN CORPUSCULAR HEMOGLOBIN 30.6 pg (27.0-33.0); MEAN CORPUSCULAR HGB CONC 33.5 g/dL (32.0-36.0); MEAN CORPUSCULAR VOLUME 91.3 fL (79-99); MONOCYTES % (AUTO) 4.6 % (3.0-13.0); PLATELET COUNT (AUTO) 198 K/uL (130-400); RED BLOOD CELL COUNT(AUTO) 4.25 MIL/uL (4.00-5.50); RED CELL DISTRIBUTION WIDTH 15.5 % (11.0-15.5); WHITE BLOOD COUNT (AUTO) 9.9 K/uL (4.8-10.8)
[2020-01-10 04:10] LABS: CREATININE 0.6 mg/dL (0.5-1.5); POTASSIUM 3.5 mmol/L (3.5-5.1)
[2020-01-10] MEDS: ARTIFICIAL TEARS 3.5 GM OINTMENT OU SCH ×4 (05:30→21:54)
[2020-01-10] MEDS: INSULIN HUMULIN R 100 UNIT/ML 3ML SQ SCH ×4 (06:00→18:00)
[2020-01-10 07:27] LABS: ABG BASE EXCESS 10.2 mmol/L (-2.0-3.0); ABG HCO3 34.3 mmol/L (21.0-28.0); ABG OXYGEN SATURATION 96.4 % (95.0-99.0); ABG PCO2 43 mmHg (32-45)
[2020-01-10] MEDS: ASCORBIC ACID 500 MG TAB PO SCH (09:22)
[2020-01-10] MEDS: MULTIVITAMIN WITH MINERALS TABLET PO SCH (09:22)
[2020-01-10] MEDS: LACTULOSE 20 GM/30 ML UDCUP PO SCH ×2 (09:22→21:51)
[2020-01-10] MEDS: FAMOTIDINE/PF 20 MG/2 ML VIAL IV SCH ×2 (09:23→21:53)
[2020-01-10] MEDS: FUROSEMIDE 10 MG/ML 4ML VIAL IV SCH ×2 (09:23→21:53)
[2020-01-10] MEDS: METHYLPREDNISOLONE SOD SUCC 40MG/ML 1ML IVP SCH (09:23)
[2020-01-10] MEDS: APIXABAN 5 MG TABLET PO SCH ×2 (09:23→21:53)
--- NOTE | 2020-01-10 13:30 | NUR ---
PRONED PRONED AT THIS TIME. TOLERATED WELL. NAD NOTED. WILL CONTINUE TO MONITOR.
[2020-01-10] MEDS: MIDAZOLAM 100MG-0.9% NS 100ML 100 ML IV SCH (13:46)
[2020-01-10] MEDS: CHLORHEXIDINE GLUCONATE 473 ML MOUTHWASH MM SCH ×2 (13:54→21:51)
[2020-01-10] MEDS ORDERED: NOREPINEPHRINE BITARTRATE 16 MG in SODIUM CHLORIDE 0.9% 250 ML IV SCH (20:30)
[2020-01-11] VITALS (63 sets, daily range): BP systolic 82–164; BP diastolic 24–83
[2020-01-11] MEDS: MIDAZOLAM 100MG-0.9% NS 100ML 100 ML IV SCH ×2 (01:35→20:52)
[2020-01-11] MEDS: FENTANYL 2500MCG+NS 250ML 250 ML IV SCH ×2 (01:36→20:52)
[2020-01-11 04:13] LABS: ABG BASE EXCESS 13.4 mmol/L (-2.0-3.0); ABG OXYGEN SATURATION 96.1 % (95.0-99.0); ABG PCO2 47 mmHg (32-45)
[2020-01-11 04:47] LABS: BASOPHILS % (AUTO) 0.1 % (0.0-5.0); EOSINOPHILS % (AUTO) 0.2 % (0.0-8.0); HEMATOCRIT 40.6 % (36-48); LYMPHOCYTES % (AUTO) 5.8 % (21.0-51.0); MEAN CORPUSCULAR HEMOGLOBIN 30.2 pg (27.0-33.0); MEAN CORPUSCULAR HGB CONC 32.8 g/dL (32.0-36.0); MEAN CORPUSCULAR VOLUME 92.3 fL (79-99); MONOCYTES % (AUTO) 4.9 % (3.0-13.0); NEUTROPHILS % (AUTO) 88.4 % (40.0-77.0); PLATELET COUNT (AUTO) 196 K/uL (130-400); RED CELL DISTRIBUTION WIDTH 15.3 % (11.0-15.5); WHITE BLOOD COUNT (AUTO) 8.2 K/uL (4.8-10.8)
[2020-01-11 05:02] LABS: ALANINE AMINOTRANSFERASE 62 U/L (12-78); ALBUMIN 1.5 g/dL (3.5-5.0); ASPARTATE AMINOTRANSFERASE 53 U/L (10-37); BILIRUBIN,TOTAL 0.5 mg/dL (0.2-1.0); CARBON DIOXIDE 41 mmol/L (21-32); CHLORIDE 105 mmol/L (101-111); CREATININE 0.5 mg/dL (0.5-1.5); GLOMERULAR FILTR. RATE CALC 126 mL/min (>60); GLUCOSE,RANDOM 107 mg/dL (70-105); PHOSPHORUS 2.2 mg/dL (2.5-4.9); POTASSIUM 3.1 mmol/L (3.5-5.1); SODIUM SERUM 145 mmol/L (136-145); TOTAL PROTEIN, SERUM 5.3 g/dL (6.0-8.3); UREA NITROGEN, BLOOD 24 mg/dL (7-18)
[2020-01-11] MEDS: INSULIN HUMULIN R 100 UNIT/ML 3ML SQ SCH ×4 (05:54→18:00)
[2020-01-11] MEDS: ARTIFICIAL TEARS 3.5 GM OINTMENT OU SCH ×4 (05:54→23:30)
--- NOTE | 2020-01-11 07:00 | NUR ---
Assumed care of patient, received report from rougher for cement nurse Uma HARRELL, Patient remains on ventilator and sedated. VSS, Will follow with assessment.
--- NOTE | 2020-01-11 08:00 | NUR ---
Assessment completed see Vss, Turned and repositioned. Mouth care and suctioned. Still sedated on ventilation resting quietly.
[2020-01-11] MEDS: METHYLPREDNISOLONE SOD SUCC 40MG/ML 1ML IVP SCH (08:58)
[2020-01-11] MEDS: LACTULOSE 20 GM/30 ML UDCUP PO SCH ×2 (08:58→20:51)
[2020-01-11] MEDS: MULTIVITAMIN WITH MINERALS TABLET PO SCH (08:59)
[2020-01-11] MEDS: FUROSEMIDE 10 MG/ML 4ML VIAL IV SCH ×2 (08:59→20:53)
[2020-01-11] MEDS: ASCORBIC ACID 500 MG TAB PO SCH (08:59)
[2020-01-11] MEDS: APIXABAN 5 MG TABLET PO SCH ×2 (09:00→20:53)
[2020-01-11] MEDS: CHLORHEXIDINE GLUCONATE 473 ML MOUTHWASH MM SCH ×2 (09:10→20:53)
[2020-01-11] MEDS: FAMOTIDINE/PF 20 MG/2 ML VIAL IV SCH ×2 (09:10→20:53)
[2020-01-11] MEDS: POTASSIUM CHLORIDE 20MEQ/100ML 100 ML IV PRN ×2 (12:32→12:34)
--- NOTE | 2020-01-11 14:00 | NUR ---
Patient placed in Prone position, assistance from 4 RNs and respiratory therapy. VSS. Back cleaned and suctioned oral cavity.
[2020-01-12] VITALS (67 sets, daily range): BP systolic 81–159; BP diastolic 33–91
[2020-01-12 03:34] LABS: ABG BASE EXCESS 8.8 mmol/L (-2.0-3.0); ABG HCO3 33.2 mmol/L (21.0-28.0); ABG OXYGEN SATURATION 96.4 % (95.0-99.0); ABG PCO2 44 mmHg (32-45)
[2020-01-12 04:32] LABS: ALBUMIN 1.4 g/dL (3.5-5.0); BILIRUBIN,TOTAL 0.5 mg/dL (0.2-1.0); CREATININE 0.4 mg/dL (0.5-1.5); MAGNESIUM 2.7 mg/dL (1.80-2.40); PHOSPHORUS 2.2 mg/dL (2.5-4.9); POTASSIUM 3.5 mmol/L (3.5-5.1); TOTAL PROTEIN, SERUM 5.3 g/dL (6.0-8.3)
[2020-01-12 04:33] LABS: INR 1.02 (0.85-1.15)
[2020-01-12] MEDS: ARTIFICIAL TEARS 3.5 GM OINTMENT OU SCH ×3 (05:41→18:43)
[2020-01-12] MEDS: FAMOTIDINE/PF 20 MG/2 ML VIAL IV SCH ×2 (09:51→20:42)
[2020-01-12] MEDS: METHYLPREDNISOLONE SOD SUCC 40MG/ML 1ML IVP SCH (09:51)
[2020-01-12] MEDS: CHLORHEXIDINE GLUCONATE 473 ML MOUTHWASH MM SCH ×2 (09:51→20:42)
[2020-01-12] MEDS: FUROSEMIDE 10 MG/ML 4ML VIAL IV SCH ×2 (09:51→20:42)
[2020-01-12] MEDS: APIXABAN 5 MG TABLET PO SCH ×2 (09:52→20:42)
[2020-01-12] MEDS: LACTULOSE 20 GM/30 ML UDCUP PO SCH ×2 (09:52→20:42)
[2020-01-12] MEDS: INSULIN HUMULIN R 100 UNIT/ML 3ML SQ SCH ×4 (12:00→18:00)
[2020-01-13] VITALS (72 sets, daily range): BP systolic 69–158; BP diastolic 34–99
[2020-01-13] MEDS: ARTIFICIAL TEARS 3.5 GM OINTMENT OU SCH ×4 (00:58→16:41)
--- NOTE | 2020-01-13 01:16 | NUR ---
NEW ONSET CRACKLES. PER DAYSHIFT RN PATIENT VOMITTED DURING SHIFT. PATIENT LUNGS ARE NOW CRACKLED. PROVIDER VENKAT WAS NOTIFIED AND A SPUTUM CULTURE WAS ORDERED ALONG WITH CHEST XRAY, WILL CONTINUE TO MONITOR.
[2020-01-13 04:42] LABS: HEMATOCRIT 39.9 % (36-48); MEAN CORPUSCULAR HEMOGLOBIN 30.4 pg (27.0-33.0); MEAN CORPUSCULAR HGB CONC 33.3 g/dL (32.0-36.0); MEAN CORPUSCULAR VOLUME 91.3 fL (79-99); RED BLOOD CELL COUNT(AUTO) 4.37 MIL/uL (4.00-5.50); RED CELL DISTRIBUTION WIDTH 16.2 % (11.0-15.5)
[2020-01-13 04:52] LABS: CREATININE 0.5 mg/dL (0.5-1.5); POTASSIUM 3.1 mmol/L (3.5-5.1)
[2020-01-13] MEDS: INSULIN HUMULIN R 100 UNIT/ML 3ML SQ SCH ×4 (06:00→16:59)
[2020-01-13] MEDS: LACTULOSE 20 GM/30 ML UDCUP PO SCH (08:57)
[2020-01-13] MEDS: POTASSIUM CHLORIDE 20MEQ/100ML 100 ML IV PRN (08:57)
[2020-01-13] MEDS: METHYLPREDNISOLONE SOD SUCC 40MG/ML 1ML IVP SCH (08:57)
[2020-01-13] MEDS: FUROSEMIDE 10 MG/ML 4ML VIAL IV SCH (08:58)
[2020-01-13] MEDS: FAMOTIDINE/PF 20 MG/2 ML VIAL IV SCH ×2 (08:58→20:00)
[2020-01-13] MEDS: CHLORHEXIDINE GLUCONATE 473 ML MOUTHWASH MM SCH ×2 (09:17→20:00)
[2020-01-13] MEDS: POTASSIUM CHLORIDE 20MEQ/100ML 100 ML IV SCH ×2 (13:00→15:27)
[2020-01-13] MEDS: APIXABAN 5 MG TABLET PO SCH ×2 (14:06→20:00)
[2020-01-13] MEDS: NOREPINEPHRINE BITARTRATE 8 MG in SODIUM CHLORIDE 0.9% 250 ML IV SCH (14:07)
[2020-01-13] MEDS: MIDAZOLAM 100MG-0.9% NS 100ML 100 ML IV SCH (17:15)
[2020-01-13] MEDS: FENTANYL 2500MCG+NS 250ML 250 ML IV SCH (17:15)
[2020-01-13] MEDS ORDERED: LACTULOSE 20 GM/30 ML UDCUP PO SCH (21:00)
[2020-01-13] MEDS ORDERED: ROCURONIUM BROMIDE 10MG/1ML 5ML VL ONE (23:04)
[2020-01-13] MEDS ORDERED: DOXYCYCLINE 100MG+NS 250ML 250 ML IV SCH (23:30)
[2020-01-13] MEDS ORDERED: SODIUM CHLORIDE 0.9% 500ML 500 ML IV ONE (23:55)
[2020-01-14] VITALS (44 sets, daily range): BP systolic 63–98; BP diastolic 22–66
[2020-01-14] MEDS: MIDAZOLAM 100MG-0.9% NS 100ML 100 ML IV SCH ×2 (00:20→03:23)
[2020-01-14] MEDS: PROPOFOL 1000 MG/100 ML IV PRN ×2 (00:20→03:24)
[2020-01-14] MEDS: ARTIFICIAL TEARS 3.5 GM OINTMENT OU SCH ×2 (00:20→05:07)
[2020-01-14] MEDS ORDERED: ACETAMINOPHEN ELIXIR 650 MG/20.3 ML UDCUP ONE (00:40)
[2020-01-14 00:51] LABS: ABG BASE EXCESS 2.7 mmol/L (-2.0-3.0); ABG HCO3 29.9 mmol/L (21.0-28.0); ABG OXYGEN SATURATION 86.4 % (95.0-99.0); ABG PCO2 57 mmHg (32-45)
[2020-01-14] MEDS ORDERED: ROCURONIUM BROMIDE 100 MG in SODIUM CHLORIDE 0.9% 100 ML IV SCH (01:00)
[2020-01-14] MEDS ORDERED: ROCURONIUM BROMIDE 10MG/1ML 5ML VL ONE (01:17)
[2020-01-14] MEDS ORDERED: PHENYLEPHRINE HCL 100 MG in SODIUM CHLORIDE 0.9% 250 ML IV SCH (01:30)
[2020-01-14] MEDS ORDERED: LACTATED RINGERS 1000ML IV ONE (01:30)
[2020-01-14 02:25] LABS: ALBUMIN 1.1 g/dL (3.5-5.0); BILIRUBIN,TOTAL 0.5 mg/dL (0.2-1.0); MAGNESIUM 1.9 mg/dL (1.80-2.40); PHOSPHORUS 1.9 mg/dL (2.5-4.9); POTASSIUM 3.3 mmol/L (3.5-5.1); TOTAL PROTEIN, SERUM 4.6 g/dL (6.0-8.3)
[2020-01-14 02:44] LABS: BASOPHILS % (AUTO) 1.3 % (0.0-5.0); EOSINOPHILS % (AUTO) 28.1 % (0.0-8.0); HEMATOCRIT 36.3 % (36-48); LYMPHOCYTES % (AUTO) 11.3 % (21.0-51.0); MEAN CORPUSCULAR HEMOGLOBIN 30.6 pg (27.0-33.0); MEAN CORPUSCULAR HGB CONC 32.2 g/dL (32.0-36.0); MONOCYTES % (AUTO) 1.3 % (3.0-13.0); NEUTROPHILS % (AUTO) 49.2 % (40.0-77.0); PLATELET COUNT (AUTO) 172 K/uL (130-400); RED BLOOD CELL COUNT(AUTO) 3.82 MIL/uL (4.00-5.50); RED CELL DISTRIBUTION WIDTH 16.8 % (11.0-15.5)
[2020-01-14 02:57] LABS: WHITE BLOOD COUNT (AUTO) 1.6 K/uL (4.8-10.8)
[2020-01-14] MEDS: NOREPINEPHRINE BITARTRATE 8 MG in SODIUM CHLORIDE 0.9% 250 ML IV SCH (03:23)
[2020-01-14] MEDS: FENTANYL 2500MCG+NS 250ML 250 ML IV SCH (03:24)
[2020-01-14 04:15] LABS: ABG HCO3 26.9 mmol/L (21.0-28.0); ABG OXYGEN SATURATION 80.8 % (95.0-99.0); ABG PCO2 64 mmHg (32-45)
[2020-01-14] MEDS: INSULIN HUMULIN R 100 UNIT/ML 3ML SQ SCH ×2 (05:17)
--- NOTE | 2020-01-14 05:43 | NUR ---
PRONE PATIENT PRONED AT APPROXIMATELY 2100 DUE TO DECREASED SATURATION. SATURATIONS INCREASED FOR A SHORT PERIOD OF TIME. PATIENT BECAME TACHYNEIC AND TACHYCARDIC AND OXYGEN SATURATIONS DROPPED RP THE 70'S. PROVIDER WAS CALLED AND MADE AWARE, PARALYTUC WAS ORDERED AND ORDER CARRIED OUT. PROVIDER ALSO ORDERS GREER CULTURE, MARTINEZ-SYNEPHERINE, FLUIDS AND ANTIBIOTICS WHICH WERE ALL CARRIED OUT. WILL CONTINUE TO MONITOR
--- NOTE | 2020-01-14 06:51 | NUR ---
PATIENT STATUS PATIENT REMAIN TACHYCARDIC, HYPOTENSIVE AND HYPOXIC. TRIED REACHING PROVIDER TWICE ABOUT LOW URINE OUTPUT AND MORNING LABS. RN WAS UNSUCCESSFUL.
[2020-01-14] MEDS ORDERED: ALBUMIN (HUMAN) 25% 100 ML IV ONE (07:43)
[2020-01-14] MEDS ORDERED: CEFEPIME HCL 2 GM VIAL IVP SCH (07:45)
[2020-01-14] MEDS ORDERED: HYDROCORTISONE SOD SUCCINATE 100 MG/2 ML VIAL IV SCH (07:45)
[2020-01-14] MEDS ORDERED: ALBUMIN (HUMAN) 25% 100 ML IV PRN (07:45)
[2020-01-14] MEDS ORDERED: VANCOMYCIN 1GM+NS 250ML 250 ML IV SCH ×2 (07:45→09:00)
[2020-01-14] MEDS ORDERED: NOREPINEPHRINE BITARTRATE 32 MG in SODIUM CHLORIDE 0.9% 250 ML IV SCH ×2 (08:00→08:15)
[2020-01-14] MEDS: CHLORHEXIDINE GLUCONATE 473 ML MOUTHWASH MM SCH (09:04)
[2020-01-14] MEDS: APIXABAN 5 MG TABLET PO SCH (09:06)
[2020-01-14] MEDS: FAMOTIDINE/PF 20 MG/2 ML VIAL IV SCH (09:07)
--- NOTE | 2020-01-14 10:42 | NUR ---
DNR STATUS FAMILY CALLED FOR DNR STATUS. EXPLAINED ALL DETAILS TO DAUGHTER BRITTANY WITH FILTER OPERATOR SHARI. ALL QUESTIONS ANSWERED. PT ACTIVELY DECLINING. WILL CONTINUE TO MONITOR.
--- NOTE | 2020-01-14 11:30 | NUR ---
EXPIRATION PT ON VENT AT 1110AM. PRONOUNCED BY ANGEL ODOM. DAUGHTER BRITTANY MADE AWARE, SHE WILL NOTIFY REST OF FAMILY AND MAKE ARRANGEMENTS. R/O BY ANA FOR ALL DONATION. WILL CONTINUE WITH POST MORTEM CARE.
== END 2020-01-14 11:10 | disposition expired | DRG 207 ==
LOC: EDH 12:22 → EDHIP 16:35 → 4CH 12-12 22:12 → 2CV 12-23 21:05
PROVIDERS: ADMIT Internal Medicine Pulmonary Disease; ATTEND Internal Medicine Pulmonary Disease
PROC: 5A1955Z Respiratory Ventilation, Greater than 96 Consecutive Hours (ICD-10-PCS; principal; 2019-12-23)
PROC: 0BH17EZ Insertion of Endotracheal Airway into Trachea, Via Natural or Artificial Opening (ICD-10-PCS; 2019-12-23)
PROC: 5A09357 Assistance with Respiratory Ventilation, Less than 24 Consecutive Hours, Continuous Positive Airway Pressure (ICD-10-PCS; 2019-12-23)
PROC: XW13325 Transfusion of Convalescent Plasma (Nonautologous) into Peripheral Vein, Percutaneous Approach, New Technology Group 5 (ICD-10-PCS; 2019-12-26)
PROC: 02HV33Z Insertion of Infusion Device into Superior Vena Cava, Percutaneous Approach (ICD-10-PCS; 2019-12-26)
DX: U07.1 COVID-19 (principal); J96.01 Acute respiratory failure with hypoxia; R65.21 Severe sepsis with septic shock; J12.89 Other viral pneumonia; A41.9 Sepsis, unspecified organism; J69.0 Pneumonitis due to inhalation of food and vomit; E11.9 Type 2 diabetes mellitus without complications; I10 Essential (primary) hypertension; I11.9 Hypertensive heart disease without heart failure; I48.0 Paroxysmal atrial fibrillation; E66.9 Obesity, unspecified; E78.5 Hyperlipidemia, unspecified; Z66 Do not resuscitate; Z79.01 Long term (current) use of anticoagulants; Z68.31 Body mass index [BMI] 31.0-31.9, adult; Z88.1 Allergy status to other antibiotic agents; Z88.8 Allergy status to other drugs, medicaments and biological substances
CPT/HCPCS: 31500; 36415; 36600; 71045; 71250; 71275; 80048; 80053; 80076; 81003; 82435; 82550; 82728; 82803; 82947; 82948; 83605; 83615; 83735; 83880; 84100; 84132; 84145; 84295; 84443; 84484; 85018; 85025; 85027; 85378; 85384; 85610; 85730; 86140; 86850; 86900; 86901; 86927; 87040; 87071; 87077; 87088; 87186; 87205; 87804; 87880; 93005; 93306; 93356; 94002; 94003; 94660; G0378; J0282; J0330; J0456; J0692; J1100; J1650; J1720; J1815; J1940; J2370; J2704; J2920; J3010; J3475; J3480; J3490; J7030; J7040; J7050; J7060; P9046; Q9967; U0003